=== PATIENT | female | born 1990 | race Hispanic/Latino ===

== ENCOUNTER 2023-08-28 22:08 | Emergency (ER) | payer OTHER, SELFPAY ==
--- OUTSIDE RECORDS SUMMARY | 2023-08-28 22:13 | XMS REPORT | Continuity of Care Document ---
Author Name Unknown Address [address] [facility] [place] [address] [facility] Address [address] 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 Main Attending Clinician Dank Salguero MD Attending Clinician [phone] DANK RAMÍREZ Attending Clinician KELSEA Limon Attending Clinician Unavailable Josue Mart PA-C Attending Clinician [phone] Unknown, Attending Attending Clinician JOSUE Larson Attending Clinician Unavailable Doctor Unassigned, [place] Attending Clinician U patricia Gant MD, Paz Attending Clinician [phone] Dank Ozuna MD Attending Clinician [phone] DANK OZUNA Attending Clinician Unavail Kelsea Baltazar PA-C Attending Clinician [phone] Honorio Hernandez MD Attending Clinician Flor Hayden MD Attending Clinician FLOR HAYDEN Attending Clinician Unavailable 2, [facility] Attending Clinician Unavailable Ashley Johansen MA Attending Clinician Unavailluz Moulton RN, Lilian Jaramillo Attending Clinician HONORIO Thompson Admitting Clinician Unavailable Payers Payer Name Policy Type Policy Number Effective Date Expirati on Date Source [employer] MEDICA[employer] [id number] 2019 00:00:00 [facility] [place] [facility] [id number] 2023 00:00:00 Problems Condition Name Condition Details Condition Category Status Onset Date Resolution Date Last Treatment Date Treating Clinician Comments Source ASCUS with positive high risk HPV cervical ASCUS with positive high risk HPV cervical Disease Active 11-18 00:00: 00 [facility] Encounter for screening for maternal depression Encounter for screening for maternal depression Disease Active 05-10 00:00: 00 [facility] Obesity (BMI 30-39.9) Obesity (BMI 30-39.9) Disease Active 2016-05 00:00: 00 [facility] History of asthma History of asthma Disease Active 09-13 00:00: 00 [facility] Allergies, Adverse Reactions, Alerts Allergy Name Allergy Type Status Severity Reaction(s) Onset Date Inactive Date Treating Clinician Comments Source NO KNOWN ALLERGIE S Drug Class Active [facility] Social History Social Habit Start Date Stop Date Quantity Comments [facility] Exposure to SARS-CoV-2 (event) 2022-09-05 00:00:00 2022-09-15 09:49:00 Not sure [facility] History of Social function 2022-09-15 00:00:00 2022-09-15 00:00:00 [facility] Alcohol intake 2019-12-08 00:00:00 2019-12-08 00:00:00 0 /d [facility] Tobacco use and exposure 2013-10-11 00:00:00 2013-10-11 00:00:00 Smokeless tobacco non-user [facility] History of tobacco use 2013-05-04 00:00:00 Cigarette Smoker [facility] Sex Assigned At 1990 00:00:00 1990 00:00:00 [facility] Smoking Status Start Date Stop Date Source Ex-smoker 2013-10-11 00:00:00 2013-10-11 00:00:00 [facility] Medications Ordered Medication Name Filled Medication Name Start Date Stop Date Current Medication? Ordering Clinician Indication Dosage Frequency Signature (SIG) Comments Components Source triamcinolo ne acetonide 0.1 % cream 09-30 00:00: 00 Yes [id number] Apply to area(s) 2 (two) times daily. [facility] tretinoin 0.025 % cream 09-15 00:00: 00 Yes [id number] Apply to area(s) at bedtime. [facility] clindamycin 1 % gel 09-15 00:00: 00 Yes [id number] Apply to area(s) every morning. [facility] doxycycline monohydrate 100 mg capsule 09-15 00:00: 00 Yes [id number] 100mg Take 1 capsule by mouth in the morning and 1 capsule in the evening. [facility] benzoyl peroxide 10 % external wash 09-15 00:00: 00 Yes [id number] Apply to area(s) 2 (two) times daily. [facility] LOESTRIN FE (LOESTRIN FE 1/20) 1 mg-20 mcg (21)/75 mg (7) tablet 02 00:00: 00 Yes [id number] 1{tbl} Take 1 tablet by mouth in the morning. [facility] terbinafine HCL 250 mg tablet 4-16 00:00: 00 09-01 04:59 :00 No [id number] 250mg Take 1 tablet by mouth in the morning for 14 days. [facility] spironolact one 50 mg tablet 2-15 00:00: 00 Yes [id number] 50mg Take 1 tablet by mouth in the morning and 1 tablet in the evening. [facility] tretinoin 0.025 % cream 06-18 00:00: 00 09-15 00:00 :00 No [id number] Apply to affected area(s) at bedtime. [facility] clindamycin 1 % gel 06-18 00:00: 00 09-15 00:00 :00 No [id number] Apply to affected area(s) every morning. [facility] No known medications 05-29 15:53: 50 No No known medication s [facility] No known medications 2021-05 13:56: 37 No No known medication s [facility] Nitrofurant oin&Nit. Macrocryst 100 mg capsule 2021-05 00:00: 00 03-16 05:59 :00 No [id number] 100mg Take 1 capsule by mouth in the morning and 1 capsule in the evening. Do all this for 5 days. [facility] phenazopyri dine 100 mg tablet 2021-05 00:00: 00 03-13 05:59 :00 No [id number] 200mg Take 2 tablets by mouth in the morning and 2 tablets at noon and 2 tablets in the evening. Do all this for 2 days. [facility] No known medications 11-18 17:27: 58 No No known medication s [facility] Diphenhydra mine-Acetam inophen (TYLENOL PM EXTRA STRENGTH) 25-500 mg Tab 2019-05 10:40: 11 03-23 00:00 :00 No 2{tbl} Take 2 tablets by mouth. Indication s: takes for tooth pain [facility] Nitrofurant oin&Nit. Macrocryst (MACROBID) 100 mg capsule 9 00:00: 00 03-23 00:00 :00 No [id number] 100mg Take 1 capsule by mouth 2 (two) times daily. [facility] metroNIDAZO LE 500 mg tablet 8-04 00:00: 00 01-22 00:00 :00 No [id number] 500mg Take 1 tablet by mouth every 12 (twelve) hours. [facility] ferrous sulfate 325 mg (65 mg iron) tablet 28 00:00: 00 03-23 00:00 :00 No [id number] 325mg Take 1 tablet by mouth 2 (two) times daily. [facility] PNV 67-iron ps-folate no.1-dha (VITAFOL ULTRA) 29 mg iron- 1 mg-200 mg Cap 16 00:00: 00 03-23 00:00 :00 No 1{each} Take 1 Each by mouth daily. [facility] Immunizations Ordered Immunization Name Filled Immunization Name Date Status Comments Source TDAP 2017-02-11 00:00:00 Completed [facility] TDAP 2017-02-11 00:00:00 Completed [facility] TDAP 2017-02-11 00:00:00 Completed [facility] TDAP 2017-02-11 00:00:00 Completed [facility] TDAP 2017-02-11 00:00:00 Completed [facility] TDAP 2017-02-11 00:00:00 Completed [facility] TDAP 2017-02-11 00:00:00 Completed [facility] TDAP 2017-02-11 00:00:00 Completed [facility] TDAP 2017-02-11 00:00:00 Completed [facility] TDAP 2017-02-11 00:00:00 Completed [facility] TDAP 2017-02-11 00:00:00 Completed [facility] TDAP 2017-02-11 00:00:00 Completed [facility] TDAP 2017-02-11 00:00:00 Completed [facility] TDAP 2017-02-11 00:00:00 Completed [facility] TDAP 2017-02-11 00:00:00 Completed [facility] TDAP 2017-02-11 00:00:00 Completed [facility] TDAP 2017-02-11 00:00:00 Completed [facility] TDAP 2017-02-11 00:00:00 Completed [facility] TDAP 2017-02-11 00:00:00 Completed [facility] TDAP 2017-02-11 00:00:00 Completed [facility] TDAP 2017-02-11 00:00:00 Completed [facility] TDAP 2017-02-11 00:00:00 Completed [facility] TDAP 2017-02-11 00:00:00 Completed [facility] TDAP 2017-02-11 00:00:00 Completed [facility] TDAP 2017-02-11 00:00:00 Completed [facility] TDAP 2017-02-11 00:00:00 Completed [facility] TDAP 2017-02-11 00:00:00 Completed [facility] TDAP 2017-02-11 00:00:00 Completed [facility] TDAP 2017-02-11 00:00:00 Completed [facility] TDAP 2017-02-11 00:00:00 Completed [facility] HPV 2015-11-02 00:00:00 Completed [facility] HPV 2015-11-02 00:00:00 Completed [facility] HPV 2015-11-02 00:00:00 Completed [facility] HPV 2015-11-02 00:00:00 Completed [facility] HPV 2015-11-02 00:00:00 Completed [facility] HPV 2015-11-02 00:00:00 Completed [facility] HPV 2015-11-02 00:00:00 Completed [facility] HPV 2015-11-02 00:00:00 Completed [facility] HPV 2015-11-02 00:00:00 Completed [facility] HPV 2015-11-02 00:00:00 Completed [facility] HPV 2015-11-02 00:00:00 Completed [facility] HPV 2015-11-02 00:00:00 Completed [facility] HPV 2015-11-02 00:00:00 Completed [facility] HPV 2015-11-02 00:00:00 Completed [facility] HPV 2015-11-02 00:00:00 Completed [facility] HPV 2015-11-02 00:00:00 Completed [facility] HPV 2015-11-02 00:00:00 Completed [facility] HPV 2015-11-02 00:00:00 Completed [facility] HPV 2015-11-02 00:00:00 Completed [facility] HPV 2015-11-02 00:00:00 Completed [facility] HPV 2015-11-02 00:00:00 Completed [facility] HPV 2015-11-02 00:00:00 Completed [facility] HPV 2015-11-02 00:00:00 Completed [facility] HPV 2015-11-02 00:00:00 Completed [facility] HPV 2015-11-02 00:00:00 Completed [facility] HPV 2015-11-02 00:00:00 Completed [facility] HPV 2015-11-02 00:00:00 Completed [facility] HPV 2015-11-02 00:00:00 Completed [facility] HPV 2015-11-02 00:00:00 Completed [facility] HPV 2015-11-02 00:00:00 Completed [facility] HPV 2015-06-12 00:00:00 Completed [facility] HPV 2015-06-12 00:00:00 Completed [facility] HPV 2015-06-12 00:00:00 Completed [facility] HPV 2015-06-12 00:00:00 Completed [facility] HPV 2015-06-12 00:00:00 Completed [facility] HPV 2015-06-12 00:00:00 Completed [facility] HPV 2015-06-12 00:00:00 Completed [facility] HPV 2015-06-12 00:00:00 Completed [facility] HPV 2015-06-12 00:00:00 Completed [facility] HPV 2015-06-12 00:00:00 Completed [facility] HPV 2015-06-12 00:00:00 Completed [facility] HPV 2015-06-12 00:00:00 Completed [facility] HPV 2015-06-12 00:00:00 Completed [facility] HPV 2015-06-12 00:00:00 Completed [facility] HPV 2015-06-12 00:00:00 Completed [facility] HPV 2015-06-12 00:00:00 Completed [facility] HPV 2015-06-12 00:00:00 Completed [facility] HPV 2015-06-12 00:00:00 Completed [facility] HPV 2015-06-12 00:00:00 Completed [facility] HPV 2015-06-12 00:00:00 Completed [facility] HPV 2015-06-12 00:00:00 Completed [facility] HPV 2015-06-12 00:00:00 Completed [facility] HPV 2015-06-12 00:00:00 Completed [facility] HPV 2015-06-12 00:00:00 Completed [facility] HPV 2015-06-12 00:00:00 Completed [facility] HPV 2015-06-12 00:00:00 Completed [facility] HPV 2015-06-12 00:00:00 Completed [facility] HPV 2015-06-12 00:00:00 Completed [facility] HPV 2015-06-12 00:00:00 Completed [facility] HPV 2015-06-12 00:00:00 Completed [facility] HPV 2015-04-04 00:00:00 Completed [facility] HPV 2015-04-04 00:00:00 Completed [facility] HPV 2015-04-04 00:00:00 Completed [facility] HPV 2015-04-04 00:00:00 Completed [facility] HPV 2015-04-04 00:00:00 Completed [facility] HPV 2015-04-04 00:00:00 Completed [facility] HPV 2015-04-04 00:00:00 Completed [facility] HPV 2015-04-04 00:00:00 Completed [facility] HPV 2015-04-04 00:00:00 Completed [facility] HPV 2015-04-04 00:00:00 Completed [facility] HPV 2015-04-04 00:00:00 Completed [facility] HPV 2015-04-04 00:00:00 Completed [facility] HPV 2015-04-04 00:00:00 Completed [facility] HPV 2015-04-04 00:00:00 Completed [facility] HPV 2015-04-04 00:00:00 Completed [facility] HPV 2015-04-04 00:00:00 Completed [facility] HPV 2015-04-04 00:00:00 Completed [facility] HPV 2015-04-04 00:00:00 Completed [facility] HPV 2015-04-04 00:00:00 Completed [facility] HPV 2015-04-04 00:00:00 Completed [facility] HPV 2015-04-04 00:00:00 Completed [facility] HPV 2015-04-04 00:00:00 Completed [facility] HPV 2015-04-04 00:00:00 Completed [facility] HPV 2015-04-04 00:00:00 Completed [facility] HPV 2015-04-04 00:00:00 Completed [facility] HPV 2015-04-04 00:00:00 Completed [facility] HPV 2015-04-04 00:00:00 Completed [facility] HPV 2015-04-04 00:00:00 Completed [facility] HPV 2015-04-04 00:00:00 Completed [facility] HPV 2015-04-04 00:00:00 Completed [facility] Rubella 2011-10-06 00:00:00 Completed [facility] TDAP 2011-10-06 00:00:00 Completed [facility] Rubella 2011-10-06 00:00:00 Completed [facility] TDAP 2011-10-06 00:00:00 Completed [facility] Rubella 2011-10-06 00:00:00 Completed [facility] TDAP 2011-10-06 00:00:00 Completed [facility] Rubella 2011-10-06 00:00:00 Completed [facility] TDAP 2011-10-06 00:00:00 Completed [facility] Rubella 2011-10-06 00:00:00 Completed [facility] TDAP 2011-10-06 00:00:00 Completed [facility] Rubella 2011-10-06 00:00:00 Completed [facility] TDAP 2011-10-06 00:00:00 Completed [facility] Rubella 2011-10-06 00:00:00 Completed [facility] TDAP 2011-10-06 00:00:00 Completed [facility] Rubella 2011-10-06 00:00:00 Completed [facility] TDAP 2011-10-06 00:00:00 Completed [facility] Rubella 2011-10-06 00:00:00 Completed [facility] TDAP 2011-10-06 00:00:00 Completed [facility] Rubella 2011-10-06 00:00:00 Completed [facility] TDAP 2011-10-06 00:00:00 Completed [facility] Rubella 2011-10-06 00:00:00 Completed [facility] TDAP 2011-10-06 00:00:00 Completed [facility] Rubella 2011-10-06 00:00:00 Completed [facility] TDAP 2011-10-06 00:00:00 Completed [facility] Rubella 2011-10-06 00:00:00 Completed [facility] TDAP 2011-10-06 00:00:00 Completed [facility] Rubella 2011-10-06 00:00:00 Completed [facility] TDAP 2011-10-06 00:00:00 Completed [facility] Rubella 2011-10-06 00:00:00 Completed [facility] TDAP 2011-10-06 00:00:00 Completed [facility] Rubella 2011-10-06 00:00:00 Completed [facility] TDAP 2011-10-06 00:00:00 Completed [facility] Rubella 2011-10-06 00:00:00 Completed [facility] TDAP 2011-10-06 00:00:00 Completed [facility] Rubella 2011-10-06 00:00:00 Completed [facility] TDAP 2011-10-06 00:00:00 Completed [facility] Rubella 2011-10-06 00:00:00 Completed [facility] TDAP 2011-10-06 00:00:00 Completed [facility] Rubella 2011-10-06 00:00:00 Completed [facility] TDAP 2011-10-06 00:00:00 Completed [facility] Rubella 2011-10-06 00:00:00 Completed [facility] TDAP 2011-10-06 00:00:00 Completed [facility] Rubella 2011-10-06 00:00:00 Completed [facility] TDAP 2011-10-06 00:00:00 Completed [facility] Rubella 2011-10-06 00:00:00 Completed [facility] TDAP 2011-10-06 00:00:00 Completed [facility] Rubella 2011-10-06 00:00:00 Completed [facility] TDAP 2011-10-06 00:00:00 Completed [facility] Rubella 2011-10-06 00:00:00 Completed [facility] TDAP 2011-10-06 00:00:00 Completed [facility] Rubella 2011-10-06 00:00:00 Completed [facility] TDAP 2011-10-06 00:00:00 Completed [facility] Rubella 2011-10-06 00:00:00 Completed [facility] TDAP 2011-10-06 00:00:00 Completed [facility] Rubella 2011-10-06 00:00:00 Completed [facility] TDAP 2011-10-06 00:00:00 Completed [facility] Rubella 2011-10-06 00:00:00 Completed [facility] TDAP 2011-10-06 00:00:00 Completed [facility] Rubella 2011-10-06 00:00:00 Completed [facility] TDAP 2011-10-06 00:00:00 Completed [facility] Influenza Virus Vaccine 2008-03-18 00:00:00 Completed [facility] Influenza Virus Vaccine 2008-03-18 00:00:00 Completed [facility] Influenza Virus Vaccine 2008-03-18 00:00:00 Completed [facility] Influenza Virus Vaccine 2008-03-18 00:00:00 Completed [facility] Influenza Virus Vaccine 2008-03-18 00:00:00 Completed [facility] Influenza Virus Vaccine 2008-03-18 00:00:00 Completed [facility] Influenza Virus Vaccine 2008-03-18 00:00:00 Completed [facility] Influenza Virus Vaccine 2008-03-18 00:00:00 Completed [facility] Influenza Virus Vaccine 2008-03-18 00:00:00 Completed [facility] Influenza Virus Vaccine 2008-03-18 00:00:00 Completed [facility] Influenza Virus Vaccine 2008-03-18 00:00:00 Completed [facility] Influenza Virus Vaccine 2008-03-18 00:00:00 Completed [facility] Influenza Virus Vaccine 2008-03-18 00:00:00 Completed [facility] Influenza Virus Vaccine 2008-03-18 00:00:00 Completed [facility] Influenza Virus Vaccine 2008-03-18 00:00:00 Completed [facility] Influenza Virus Vaccine 2008-03-18 00:00:00 Completed [facility] Influenza Virus Vaccine 2008-03-18 00:00:00 Completed [facility] Influenza Virus Vaccine 2008-03-18 00:00:00 Completed [facility] Influenza Virus Vaccine 2008-03-18 00:00:00 Completed [facility] Influenza Virus Vaccine 2008-03-18 00:00:00 Completed [facility] Influenza Virus Vaccine 2008-03-18 00:00:00 Completed [facility] Influenza Virus Vaccine 2008-03-18 00:00:00 Completed [facility] Influenza Virus Vaccine 2008-03-18 00:00:00 Completed [facility] Influenza Virus Vaccine 2008-03-18 00:00:00 Completed [facility] Influenza Virus Vaccine 2008-03-18 00:00:00 Completed [facility] Influenza Virus Vaccine 2008-03-18 00:00:00 Completed [facility] Influenza Virus Vaccine 2008-03-18 00:00:00 Completed [facility] Influenza Virus Vaccine 2008-03-18 00:00:00 Completed [facility] Influenza Virus Vaccine 2008-03-18 00:00:00 Completed [facility] Influenza Virus Vaccine 2008-03-18 00:00:00 Completed [facility] Influenza Virus Vaccine Unknown Completed [facility] Rubella Unknown Completed [facility] TDAP Unknown Completed [facility] HPV Unknown Completed [facility] HPV Unknown Completed [facility] HPV Unknown Completed [facility] TDAP Unknown Completed [facility] Influenza Virus Vaccine Unknown Completed [facility] Rubella Unknown Completed [facility] TDAP Unknown Completed [facility] HPV Unknown Completed [facility] HPV Unknown Completed [facility] HPV Unknown Completed [facility] TDAP Unknown Completed [facility] Influenza Virus Vaccine Unknown Completed [facility] Rubella Unknown Completed [facility] TDAP Unknown Completed [facility] HPV Unknown Completed [facility] HPV Unknown Completed [facility] HPV Unknown Completed [facility] TDAP Unknown Completed [facility] Influenza Virus Vaccine Unknown Completed [facility] Rubella Unknown Completed [facility] TDAP Unknown Completed [facility] HPV Unknown Completed [facility] HPV Unknown Completed [facility] HPV Unknown Completed [facility] TDAP Unknown Completed [facility] Influenza Virus Vaccine Unknown Completed [facility] Rubella Unknown Completed [facility] TDAP Unknown Completed [facility] HPV Unknown Completed [facility] HPV Unknown Completed [facility] HPV Unknown [facility]pleted [facility] TDAP Unknown Completed [facility] [facility] Influenza Virus Vaccine Unknown Completed [facility] Rubella Unknown Completed [facility] TDAP Unknown Completed [facility] HPV Unknown Completed [facility] HPV Unknown Completed [facility] HPV Unknown Completed [facility] TDAP Unknown Completed [facility] Influenza Virus Vaccine Unknown Completed [facility] Rubella Unknown Completed [facility] TDAP Unknown Completed [facility] HPV Unknown Completed [facility] HPV Unknown Completed [facility] HPV Unknown Completed [facility] TDAP Unknown Completed [facility] Vital Signs Vital Name Observation Time Observation Value Comments S ource Systolic blood pressure 2022-09-02 21:38:00 111 mm[Hg] [facility] Diastolic blood pressure 2022-09-02 21:38:00 73 mm[Hg] [facility] Heart rate 2022-09-02 21:38:00 68 [facility] 2022-09-02 21:38:00 36.56 Lorena [facility] Respiratory rate 2022-09-02 21:38:00 18 /min [facility] Body height 2022-09-02 21:38:00 149.9 cm [facility] weight 2022-09-02 21:38:00 62.596 kg Univ [facility] BMI 2022-09-02 21:38:00 27.87 kg/m2 [facility] Systolic blood pressure 2022-08-18 00:17:00 110 mm[Hg] [facility] Diastolic blood pressure 2022-08-18 00:17:00 59 mm[Hg] [facility] Heart rate 2022-08-18 00:17:00 78 /min Unive [facility] Body temperature 2022-08-18 00:17:00 36.78 Lorena [facility] Respiratory rate 2022-08-18 00:17:00 16 /min [facility] Body weight 2022-08-18 00:17:00 61.236 kg [facility] BMI 2022-08-18 00:17:00 27.27 kg/m2 [facility] Oxygen saturation in Arterial blood by Pulse oximetry 2022-08-18 00:17:00 98 /min [facility] Systolic blood pressure 2022-05-29 21:16:00 128 mm[Hg] [facility] Diastolic blood pressure 2022-05-29 21:16:00 79 mm[Hg] [facility] Heart rate 2022-05-29 21:16:00 76 /min Unive [facility] Body temperature 2022-05-29 21:16:00 36.72 Lorena [facility] Body height 2022-05-29 21:16:00 149.9 cm [facility] Body weight 2022-05-29 21:16:00 59.966 kg [facility] BMI 2022-05-29 21:16:00 26.70 kg/m2 [facility] Systolic blood pressure 2022-03-10 19:44:00 115 mm[Hg] [facility] Diastolic blood pressure 2022-03-10 19:44:00 81 mm[Hg] [facility] Heart rate 2022-03-10 19:44:00 76 /min Unive [facility] Body temperature 2022-03-10 19:44:00 36.72 Lorena [facility] Respiratory rate 2022-03-10 19:44:00 16 /min [facility] Body weight 2022-03-10 19:44:00 58.196 kg [facility] BMI 2022-03-10 19:44:00 25.91 kg/m2 [facility] Oxygen saturation in Arterial blood by Pulse oximetry 2022-03-10 19:44:00 99 /min [facility] Systolic blood pressure 2021-11-18 19:11:00 108 mm[Hg] [facility] Diastolic blood pressure 2021-11-18 19:11:00 72 mm[Hg] [facility] Heart rate 2021-11-18 19:11:00 77 /min [facility] Body temperature 2021-11-18 19:11:00 36.94 Lorena [facility] Body height 2021-11-18 19:11:00 149.9 cm [facility] Body weight 2021-11-18 19:11:00 55.702 kg [facility] BMI 2021-11-18 19:11:00 24.80 kg/m2 [facility] Procedures Procedure Date / Time Performed Performing Clinician Source [facility] PATIENT FINANCIAL POLICY 2022-08-18 00:12:13 Doctor Unassigned, [place] [facility] INSURANCE CORRESPONDENCE 2022-06-28 06:01:00 Doc tor Unassigned, [place] [facility] POCT URINALYSIS 2022-03-10 19:51:00 Flor Hayden [facility] ASSIGNMENT OF BENEFITS 2022-03-10 19:15:08 Docto r Unassigned, [place] [facility] DISCLOSURE AND CONSENT, MEDICAL AND SURGICAL PROCEDURES 2021-11-06 05:01:00 Doctor Unassigned, [place] [facility] Encounters Start Date/Time End Date/Time Encounter Type Admission Type Attending Clinicians Care Facility Care Department Encounter ID Source 2021-03-02 16:05:39 Outpatient R HONORIO HERNANDEZ [facility] GEORGE [id number] [facility] 2021-03-02 06:08:38 Outpatient P [facility] MIRI [id number] [facility] 2023-09-22 11:30:00 2023-09-22 11:30:00 Outpatient R EVELYNE LAINEZIO-ERLINDA S, EVELYNE [facility] [id number] [facility] 2023-04-03 09:51:03 2023-04-03 09:51:03 Outpatient [facility] [id number] Micah Reardon 2022-12-18 11:30:00 2022-12-18 11:30:00 Outpatient ADRIANNE MARTINEZ [facility] [id number] [facility] 2022-09-30 00:00:00 2022-09-30 00:00:00 Patient Secure Msg Yang Guthrie [facility] 1.2.840.114 350.1.13.10 4.2.7.2.686 [id number] [facility] 2022-09-25 00:00:00 2022-09-25 00:00:00 Patient Secure Msg Yang Guthrie [facility] 1.2.840.114 350.1.13.10 4.2.7.2.686 [id number] [facility] 2022-09-17 00:00:00 2022-09-17 00:00:00 Telephone Yang Guthrie [facility] 1.2.840.114 350.1.13.10 4.2.7.2.686 [id number] [facility] 2022-09-15 10:15:00 2022-09-15 11:24:56 Outpatient LINDA LÓPEZ [facility] [id number] [facility] 2022-09-15 10:15:00 2022-09-15 11:24:56 Office Visit Yang Guthrie [facility] 1.2.840.114 350.1.13.10 4.2.7.2.686 [id number] [facility] 2022-09-15 00:00:00 2022-09-15 00:00:00 Telephone Yang Guthrie [facility] 1..114 350.1.13.10 4.2.7.2.686 [id number] [facility] 2022-09-02 17:15:00 2022-09-02 17:30:00 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, 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 Main Dank Ramírez [facility] 1..114 350.1.13.10 4.2.7.2.686 [id number] [facility] 2022-09-02 17:15:00 2022-09-02 17:15:00 Outpatient DANK LOPEZ [facility] [id number] [facility] 2022-09-02 16:00:00 2022-09-02 17:00:01 Office Visit Evelyne Lainez [facility] 1..114 350.1.13.10 4.2.7.2.686 [id number] [facility] 2022-08-17 19:00:00 2022-08-17 19:20:00 Urgent Care Josue Mart Unknown, Attending [facility] 1.84.114 350.1.13.10 4.2.7.2.686 [id number] [facility] 2022-08-17 19:00:00 2022-08-17 19:00:00 Outpatient JOSUE STEPHENS [facility] [id number] [facility] 2022-08-17 00:00:00 2022-08-17 00:00:00 Orders Only Doctor Unassigned, [place] [facility] 1..114 350.1.13.10 4.2.7.2.686 [id number] [facility] 2022-07-04 00:00:00 2022-07-04 00:00:00 Telephone Paz Gant [facility]PEC IALTY [facility] 1..114 350.1.13.10 4.2.7.2.686 [id number] [facility] 2022-06-28 00:00:00 2022-06-28 00:00:00 Orders Only Doctor Unassigned, [place] [facility] 1..114 350.1.13.10 4.2.7.2.686 [id number] [facility] 2022-06-24 00:00:00 2022-06-24 00:00:00 Telephone Paz Gant [facility] 1..114 350.1.13.10 4.2.7.2.686 [id number] [facility] 2022-06-18 10:45:00 2022-06-18 11:00:00 Office Visit Paz Gant Michael G [facility] 1..114 350.1.13.10 4.2.7.2.686 [id number] [facility] 2022-06-18 10:45:00 2022-06-18 10:45:00 Outpatient DANK WESLEY [facility] [id number] [facility] 2022-06-09 00:00:00 2022-06-09 00:00:00 Patient Secure Kelsea Cason [facility] FORTINO JACOBO [facility] 1..114 350.1.13.10 4.2.7.2.686 [id number] 134 [id number] [facility] 2022-06-09 00:00:00 2022-06-09 00:00:00 Patient Secure Msg [facility] 1..840.114 350.1.13.10 4.2.7.2.686 [id number] [facility] 2022-05-29 15:00:00 2022-05-29 15:55:43 Outpatient R MARY HONORIO [facility] [id number] [facility] 2022-05-29 15:00:00 2022-05-29 15:55:43 Office Visit [facility] 1..840.114 350.1.13.10 4.2.7.2.686 [id number] 134 [id number] [facility] 2022-03-10 13:00:00 2022-03-10 13:20:00 Urgent Care Flor Hayden, Attending [facility] 1..840.114 350.1.13.10 4.2.7.2.686 [id number] [facility] 2022-03-10 13:00:00 2022-03-10 13:00:00 Outpatient R FLOR HAYDEN [facility] [id number] [facility] 2022-03-10 00:00:00 2022-03-10 00:00:00 Orders Only Doctor Unassigned, [place] [facility] 1.840.114 350.1.13.10 4.2.7.2.686 [id number] [facility] 2022-03-10 00:00:00 2022-03-10 00:00:00 Letter (Out) Flor Hayden [facility] JOHANN?[facility] 1..840.114 350.1.13.10 4.2.7.2.686 [id number] [facility] 2021-11-18 13:30:00 2021-11-18 14:40:17 [facility] [id number] [facility] 2021-11-18 13:30:00 2021-11-18 14:40:17 Office Visit Honorio Hernandez [facility] PROFESSIO NAL BUILDING 1.2.840.114 350.1.13.10 4.2.7.2.686 [id number] [facility] 2021-11-18 13:30:00 2021-11-18 14:40:17 Outpatient R HONORIO HERNANDEZ [facility] [id number] [facility] 2021-11-18 13:30:00 2021-11-18 13:30:00 Outpatient R HONORIO HERNANDEZ [facility] [id number] [facility] 2021-11-06 13:00:00 2021-11-06 13:42:53 Outpatient R [facility] [id number] [facility] 2021-11-06 13:00:00 2021-11-06 13:42:53 [facility] 1.2.840.114 350.1.13.10 4.2.7.2.686 [id number] [facility] 2021-11-06 13:00:00 2021-11-06 13:42:53 Outpatient R [facility] [id number] [facility] 2021-11-06 00:00:00 2021-11-06 00:00:00 Orders Only Doctor Unassigned, [place] [facility] 1.2.840.114 350.1.13.10 4.2.7.2.686 [id number] [facility] 2021-10-09 13:00:00 2021-10-09 13:00:00 Outpatient R HONORIO HERNANDEZ [facility] [id number] [facility] 2021-09-16 00:00:00 2021-09-16 00:00:00 Telephone Vanaphan, [facility] 1.2.840.114 350.1.13.10 4.2.7.2.686 [id number] 134 [id number] [facility] 2021-08-29 14:30:00 2021-08-29 14:45:00 [employer]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 2, [facility] 1.2.840.114 350.1.13.10 4.2.7.2.686 [id number] [facility] 2021-08-29 14:30:00 2021-08-29 14:30:00 [facility] [id number] 2021-08-29 14:00:00 2021-08-29 14:07:50 [facility] 1.2.840.114 350.1.13.10 4.2.7.2.686 [id number] [facility] 2021-08-29 14:00:00 2021-08-29 14:07:50 [facility] [id number] [facility] 2021-07-02 00:00:00 2021-07-02 00:00:00 Case Management Ashley Johansen 1..840.114 350.1.13.10 4.2.7.2.686 [id number] [facility] 2021-02-18 09:30:00 2021-02-18 09:30:00 Outpatient HONORIO JAMA [facility] [id number] [facility] 2021-01-16 00:00:00 2021-01-16 00:00:00 Telephone Lilian Moulton 1..840.114 350.1.13.10 4.2.7.2.686 [id number] [facility] 2021-01-10 11:34:00 2021-01-10 11:49:00 [employer]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1.13.10 4.2.7.2.686 [id number] [facility] 2020-09-24 10:00:00 2020-09-24 10:00:00 Outpatient R [facility] [id number] [facility] 2020-08-16 09:30:00 2020-08-16 09:30:00 Outpatient HONORIO JAMA [facility] [id number] [facility] 2020-08-14 00:00:00 2020-08-14 00:00:00 Patient Secure Msg Doctor Unassigned, [place] [facility] 1.2.840.114 350.1.13.10 4.2.7.2.686 [id number] [facility] 2020-07-23 10:30:00 2020-07-23 10:30:00 [facility] [id number] [facility] 2020-07-17 10:30:00 2020-07-17 10:30:00 Outpatient HONORIO JAMA [facility] [id number] [facility] 2020-06-25 15:15:00 2020-06-25 15:15:00 Outpatient HONORIO JAMA [facility] [id number] [facility] 2020-05-25 00:00:00 2020-05-25 00:00:00 Patient Secure g Honorio Hernandez [facility] 1..840.114 350.1.13.10 4.2.7.2.686 [id number] [facility] 2020-05-14 10:15:00 2020-05-14 10:15:00 Outpatient HONORIO JAMA [facility] [id number] [facility] 2020-05-10 15:00:00 2020-05-10 15:00:00 Outpatient HONORIO JAMA [facility] [id number] [facility] 2020-04-24 10:30:00 2020-04-24 10:30:00 Outpatient Carole HARRIS KELSEA [facility] [id number] [facility] 2020-03-21 09:30:00 2020-03-21 09:30:00 Outpatient HONORIO JAMA [facility] [id number] [facility] 2020-03-20 16:15:00 2020-03-20 16:15:00 Outpatient Carole HARRIS KELSEA [facility] [id number] [facility] 2020-03-16 00:00:00 2020-03-16 00:00:00 Patient Secure Msg Doctor Unassigned, [place] [facility] 1..840.114 350.1.13.10 4.2.7.2.686 [id number] [facility] 2020-03-13 16:15:00 2020-03-13 16:15:00 Outpatient R HONORIO HERNANDEZ [facility] [id number] [facility] 2020-03-06 10:30:00 2020-03-06 10:30:00 Outpatient R KELSEA HARRIS [facility] [id number] [facility] 2020-02-20 16:15:00 2020-02-20 16:15:00 Outpatient R HONORIO HERNANDEZ [facility] [id number] [facility] 2020-02-06 16:15:00 2020-02-06 16:15:00 Outpatient R KELSEA HARRIS [facility] [id number] [facility] 2020-02-03 14:30:00 2020-02-03 14:30:00 Outpatient R [facility] [id number] [facility] 2020-02-01 10:00:00 2020-02-01 10:00:00 Outpatient R [facility] [id number] [facility] 2020-01-27 10:00:00 2020-01-27 10:00:00 Outpatient R [facility] [id number] [facility] 2020-01-23 10:15:00 2020-01-23 10:15:00 Outpatient R HONORIO HERNANDEZ [facility] [id number] [facility] 2020-01-20 00:00:00 2020-01-20 00:00:00 Patient Secure Msg Honorio Hernandez [facility] 1.2.840.114 350.1.13.10 4.2.7.2.686 [id number] [facility] 2020-01-06 11:00:00 2020-01-06 11:00:00 Outpatient R KELSEA HARRIS [facility] [id number] [facility] 2020-01-06 00:00:00 2020-01-06 00:00:00 Patient Secure Msg Honorio Hernandez [facility] 1.2.840.114 350.1.13.10 4.2.7.2.686 [id number] [facility] 2019-12-05 14:00:00 2019-12-05 14:00:00 Outpatient HONORIO JAMA [facility] [id number] [facility] Results Test Description Test Time Test Comments Results Result Co mments Source [facility] W SPECIFIC [id number] 19:53:00* Test Item Value Reference Range Interpretation Comme nts POCT U SP GRAV (test code = 3255) 1.015 mg/dl 1.005-1.025 POCT PH U (test code = 3254) 5 mg/dl 5-8 POCT U LEUK EST (test code = 3263) ++ Negative - Negative POCT U NIT (test code = 3262) neg Negative - Negative POCT U PROT (test code = 3259) trace Negative - Negative POCT U GLU (test code = 3256) normal Negative - Negative POCT U KETONE (test code = 3258) neg Negative - Negative POCT U UROBILI (test code = 3260) normal 0.2-1 POCT U BILI (test code = 3261) neg Negative - Negative POCT U BLD (test code = 3257) trace Negative - Negative POCT U COLOR (test code = 3266) dark yellow POCT U APPEAR (test code = 3267) cloudy ECHO (test code = ECHO) accurate developme nt and interpretation of all internal controls Lab Interpretation (test code = 04896-6) Abnormal [facility]
[2023-08-28] MEDS ORDERED: NA CHLORIDE 0.9% 1,000 ML ONE (22:25)
[2023-08-28 22:42] LABS: Absolute Eosinophils 0.1 K/uL (0-0.5); Absolute Lymphocytes (CBC) 2.8 K/uL (0.7-4.9); Absolute Monocytes 0.8 K/uL (0.1-1.3); Absolute Neutrophil 6.2 K/uL (1.8-8.0); Basophils % 0.5 % (0-1.3); Eosinophils % 1.1 % (0-4.4); Hematocrit 41.4 % (36.0-45.0); Hemoglobin 14.2 g/dL (12.0-15.0); Lymphocytes % 28.3 % (15.3-44.8); MCH 29.2 pg (27.0-35.0); MCHC 34.3 g/dL (32.0-36.0); MPV 8.9 fL (7.6-11.3); Monocytes % 7.6 % (3.3-12.3); Neutrophils % 62.5 % (41.7-73.7); Nucleated Red Blood Cells % 0.1 % (0-0); Platelets 386 thou/uL (152-406); RBC Red Blood Cell Count 4.87 M/uL (3.86-4.86); Red Cell Distribution Width 13.3 % (12.1-15.2)
[2023-08-28 22:59] LABS: Albumin 4.2 g/dL (3.4-5.0); Albumin/Globulin Ratio 1.1 (1.1-1.8); Anion Gap 11.4 mEq/L (5.0-15.0); Bilirubin Total 1.4 mg/dL (0.2-1.0); Globulin 3.8 g/dL (2.3-3.5); Potassium 3.4 mEq/L (3.5-5.1)
[2023-08-28 23:03] LABS: SARS-CoV-2 Antigen CONTROL BLUE LINE VIS/BG OK; SARS-CoV-2 Antigen Rapid Res Negative (Negative)
[2023-08-28] MEDS ORDERED: POTASSIUM 25 MEQ EFFERV TAB ONE (23:18)
--- NOTE | 2023-08-28 23:43 | EDPHYS ---
Physician Documentation [facility] Name: Kamala Castillo Age: 32 yrs Sex: Female : 1990 Arrival Date: 08/28/2023 Time: 22:08 Bed 3 Private MD: ED Physician Paresh Senior HPI: 08/27 22:52 This 32 yrs old Female presents to ER via Ambulatory with complaints of Near shira Syncope. 22:52 The patient has experienced near-syncope, almost passed out, felt dizzy, felt faint. shira Onset: The symptoms/episode began/occurred just prior to arrival, today. Duration: This was a single episode, that lasted 10 second(s). Context: the episode(s) was witnessed, by family, , occurred at home. Associated injury: The patient did not suffer any apparent associated injury. Associated signs and symptoms: Pertinent positives: dizziness, headache, weakness, body aches. Current symptoms: headache, that is mild. The patient has not experienced similar symptoms in the past. Historical: - Allergies: 22:16 No Known Allergies; jb4 - PMHx: 22:16 None; jb4 - PSHx: 22:16 Tonsillectomy; jb4 - Immunization history:: Adult Immunizations up to date. - Infectious Disease History:: Denies. - Social history:: Smoking status: Patient denies any tobacco usage or history of. - Family history:: not pertinent. ROS: 22:52 Constitutional: Negative for fever, chills, and weight loss, Eyes: Negative for injury, shira pain, redness, and discharge, ENT: Negative for injury, pain, and discharge, Neck: Negative for injury, pain, and swelling, Cardiovascular: Negative for chest pain, palpitations, and edema, Respiratory: Negative for shortness of breath, cough, wheezing, and pleuritic chest pain, Abdomen/GI: Negative for abdominal pain, nausea, vomiting, diarrhea, and constipation, Back: Negative for injury and pain, : Negative for injury, bleeding, discharge, and swelling, MS/Extremity: Negative for injury and deformity, Skin: Negative for injury, rash, and discoloration, Psych: Negative for depression, anxiety, suicide ideation, homicidal ideation, and hallucinations, Allergy/Immunology: Negative for hives, rash, and allergies, Endocrine: Negative for neck swelling, polydipsia, polyuria, polyphagia, and marked weight changes, Hematologic/Lymphatic: Negative for swollen nodes, abnormal bleeding, and unusual bruising, 22:52 Neuro: Positive for near syncope, Exam: 22:52 Constitutional: This is a well developed, well nourished patient who is awake, alert, shira and in no acute distress. Head/Face: Normocephalic, atraumatic. Eyes: Pupils equal round and reactive to light, extra-ocular motions intact. Lids and lashes normal. Conjunctiva and sclera are non-icteric and not injected. Cornea within normal limits. Periorbital areas with no swelling, redness, or edema. ENT: Nares patent. No nasal discharge, no septal abnormalities noted. Tympanic membranes are normal and external auditory canals are clear. Oropharynx with no redness, swelling, or masses, exudates, or evidence of obstruction, uvula midline. Mucous membranes moist. Neck: Trachea midline, no thyromegaly or masses palpated, and no cervical lymphadenopathy. Supple, full range of motion without nuchal rigidity, or vertebral point tenderness. No Meningismus. Chest/axilla: Normal chest wall appearance and motion. Nontender with no deformity. No lesions are appreciated. Cardiovascular: Regular rate and rhythm with a normal S1 and S2. No gallops, murmurs, or rubs. Normal PMI, no JVD. No pulse deficits. Respiratory: Lungs have equal breath sounds bilaterally, clear to auscultation and percussion. No rales, rhonchi or wheezes noted. No increased work of breathing, no retractions or nasal flaring. Abdomen/GI: Soft, non-tender, with normal bowel sounds. No distension or tympany. No guarding or rebound. No evidence of tenderness throughout. Back: No spinal tenderness. No costovertebral tenderness. Full range of motion. Skin: Warm, dry with normal turgor. Normal color with no rashes, no lesions, and no evidence of cellulitis. MS/ Extremity: Pulses equal, no cyanosis. Neurovascular intact. Full, normal range of motion. Neuro: Awake and alert, GCS 15, oriented to person, place, time, and situation. Cranial nerves II-XII grossly intact. Motor strength 5/5 in all extremities. Sensory grossly intact. Cerebellar exam normal. Normal gait. 22:52 ECG was reviewed by the Attending Physician. 22:52 Musculoskeletal/extremity: DVT Exam: No signs of deep vein thrombosis. no pain, no swelling, no tenderness, negative Homans' sign noted on exam, no appreciated bluish discoloration, no erythema, no increased warmth, Vital Signs: 22:15 BP 133 / 107; Pulse 71; Resp 18; Temp 97.2(O); Pulse Ox 96% on R/A; Weight 63.5 kg; jb4 Height 4 ft. 11 in. ; 08/28 00:04 BP 124 / 72; Pulse 76; Resp 17; Temp 98; Pulse Ox 99% on R/A; rv 08/27 22:15 Body Mass Index 28.28 (63.50 kg, 149.86 cm) jb4 [place] Coma Score: 00:04 Eye Response: spontaneous(4). Motor Response: obeys commands(6). Verbal Response: rv oriented(5). Total: 15. MDM: 08/27 22:13 Patient medically screened. [facility] 22:56 Differential Diagnosis: cardiac arrhythmia, GI bleed, sepsis, vasovagal episode. Data [facility] reviewed: vital signs, nurses notes, lab test result(s), EKG, radiologic studies, CT scan. Consideration of Admission/Observation Escalation of care including admission/observation considered. I considered the following discharge prescriptions or medication management in the emergency department Medications were administered in the Emergency Department. See MAR. Independent interpretation of the following test(s) in the Emergency Department EKG: See my EKG interpretation above. Test considered but Not performed: MRI: no mri brain. Historians other than the Patient: Spouse/Significant Other: so well informed. Care significantly affected by the following chronic conditions: none. Counseling: I had a detailed discussion with the patient and/or guardian regarding the historical points, exam findings, and any diagnostic results supporting the discharge/admit diagnosis, lab results, radiology results, the need for outpatient follow up, for definitive care, a family practitioner. 08/27 22:23 Order name: CBC with Diff; Complete Time: 22:51 [facility] 08/27 22:23 Order name: Comprehensive Metabolic Panel; Complete Time: 23:07 [facility] 08/27 22:23 Order name: Urinalysis w/ reflexes [facility] 08/27 22:23 Order name: PREGU [facility] 08/27 22:23 Order name: Flu; Complete Time: 23:07 [facility] 08/27 22:23 Order name: SARS RAPID; Complete Time: 23:07 [facility] 08/27 22:23 Order name: Strep [facility] 08/27 23:04 Order name: Throat Culture [facility] 08/27 22:59 Order name: PO challenge; Complete Time: 23:13 [facility] EC:52 Rate is 69 beats/min. Rhythm is regular. QRS [place] is Normal. [place] interval is normal. QRS shira interval is normal. QT interval is normal. No Q waves. T waves are Normal. No ST changes noted. Clinical impression: Normal ECG and No evidence of ischemia. Interpreted by me. Reviewed by me. Administered Medications: 22:29 Drug: NS 0.9% IV 1000 ml IV at 1 bolus Per protocol; 1000 mL bolus Route: IV; Rate: 1 jb4 bolus; Site: right antecubital; :27 Follow up: Response: No adverse reaction; IV Status: Completed infusion; IV Intake: jb4 1000ml 23:27 Drug: Potassium PO Effervescent Tablet 25 mEq PO once; dissolve in 4 ounces of water or jb4 juice Route: PO; 08/28 00:05 Follow up: Response: No adverse reaction rv Disposition Summary: 08/28/23 23:42 Discharge Ordered Notes: Location: Home shira Problem: new shira Symptoms: have improved shira Condition: Stable shira Diagnosis - Syncope Near shira - Viral infection, unspecified shira - Hyperventilation shira - Hypokalemia shira Followup: shira - With: Private Physician - When: 2 - 3 days - Reason: Recheck today's complaints, Continuance of care, Re-evaluation by your physician Discharge Instructions: - Discharge Summary Sheet shira - Potassium Content of Foods shira - Near-Syncope shira - Syncope shira - Weakness shira - Near-Syncope, Qyqr-ho-Akjr shira - Syncope, Iilu-rg-Rrtk shira - Weakness, Vszd-ka-Jpvi shira - Viral Respiratory Infection, [place]-Xy-Czbr shira - Hypokalemia shira - Viral Illness, Adult shira Forms: - Medication Reconciliation Form shira - Antibiotic Education shira - Prescription Opioid Use shira - Patient Portal Instructions shira - Leadership Thank You Letter [facility] Prescriptions: - ondansetron 4 mg Oral Tablet,disintegrating - take 1 tablet ORAL route every 6 to 8 hours for 5 days; 20 tablet; Refills: 0, shira Product Selection Permitted - Ibuprofen 600 mg Oral tablet - take 1 tablet ORAL route every 6 hours As needed take with food; 20 tablet; shira Refills: 0, Product Selection Permitted Signatures: Dispatcher [employer] EDMS Paresh Senior MD MD cha Bryson, James, RN RN jb4 Chaparro Bradley RN rv Corrections: (The following items were deleted from the chart) 08/27 22:24 22:23 CBC+H.LAB.BRZ ordered. EDMS EDMS 22:24 22:23 COMPREHENSIVE METABOLIC PANEL+C.LAB.BRZ ordered. EDMS EDMS 22:24 22:23 Urinalysis+U.LAB.BRZ ordered. EDMS EDMS 22:24 22:23 Test, Urine+UC.LAB.BRZ ordered. EDMS EDMS 22:24 22:23 Influenza Screen (A \T\ B)+BA.LAB.BRZ ordered. EDMS EDMS 22:24 22:23 SARS-COV-2 Antigen Rapid+I.LAB.BRZ ordered. EDMS EDMS 22:24 22:23 Group A Streptococcus Rapid Sc+BA.LAB.BRZ ordered. EDMS EDMS 22:59 22:59 Head Brain Wo Cont+CT.RAD.BRZ ordered. EDMS EDMS
--- NOTE | 2023-08-28 23:43 | ER ---
Nurse's Notes [facility] Name: Kamala Castillo Age: 32 yrs Sex: Female : 1990 Arrival Date: 08/28/2023 Time: 22:08 Bed 3 Private MD: Diagnosis: Syncope Near;Viral infection, unspecified;Hyperventilation;Hypokalemia Presentation: 08/27 22:15 Chief complaint: Patient states: I was cooking dinner and suddenly got light headed. I jb4 have tingling in my face and cramping and numbness in my right hand and both feet. Coronavirus screen: At this time, the client does not indicate any symptoms associated with coronavirus-19. Ebola Screen: No symptoms or risks identified at this time. Initial Sepsis Screen: Does the patient meet any 2 criteria? No. Patient's initial sepsis screen is negative. Does the patient have a suspected source of infection? No. Patient's initial sepsis screen is negative. Risk Assessment: Do you want to hurt yourself or someone else? Patient reports no desire to harm self or others. Onset of symptoms was August 28, 2023. Transition of care: patient was not received from another setting of care. 22:15 Method Of Arrival: Ambulatory jb4 22:15 Acuity: BOO 3 jb4 Triage Assessment: 22:16 General: Appears in no apparent distress. uncomfortable, Behavior is cooperative, jb4 anxious, crying. Pain: Complains of pain in right hand, right foot and left foot Pain does not radiate. Pain currently is 7 out of 10 on a pain scale. EENT: No signs and/or symptoms were reported regarding the EENT system. Neuro: Level of Consciousness is awake, alert, obeys commands, Oriented to person, place, time, situation. Cardiovascular: Patient's skin is warm and dry. Respiratory: Airway is patent Respiratory effort is even, unlabored, Respiratory pattern is regular, symmetrical. GI: No signs and/or symptoms were reported involving the gastrointestinal system. : No signs and/or symptoms were reported regarding the genitourinary system. Derm: Skin is intact, Skin is pink, warm \T\ dry. Musculoskeletal: Circulation, motion, and sensation intact. Range of motion: intact in all extremities. Historical: - Allergies: 22:16 No Known Allergies; jb4 - PMHx: 22:16 None; jb4 - PSHx: 22:16 Tonsillectomy; jb4 - Immunization history:: Adult Immunizations up to date. - Infectious Disease History:: Denies. - Social history:: Smoking status: Patient denies any tobacco usage or history of. - Family history:: not pertinent. Screenin:18 [facility] ED Fall Risk Assessment (Adult) History of falling in the last 3 months, rv including since admission No falls in past 3 months (0 pts) Score/Fall Risk Level 0 - 2 = Low Risk Oriented to surroundings, Maintained a safe environment, Educated pt \T\ family on fall prevention, incl call for assistance when getting out of bed, Assessed \T\ reinforced patient's understanding of fall precautions. Abuse screen: Denies threats or abuse. Denies injuries from another. Nutritional screening: No deficits noted. Tuberculosis screening: No symptoms or risk factors identified. Assessment: 08/28 00:04 Reassessment: Patient and/or family updated on plan of care and expected duration. Pain rv level reassessed. Patient is alert, oriented x 3, equal unlabored respirations, skin warm/dry/pink. Patient states feeling better. Patient states symptoms have improved. Vital Signs: 08/27 22:15 BP 133 / 107; Pulse 71; Resp 18; Temp 97.2(O); Pulse Ox 96% on R/A; Weight 63.5 kg; jb4 Height 4 ft. 11 in. ; 08/28 00:04 BP 124 / 72; Pulse 76; Resp 17; Temp 98; Pulse Ox 99% on R/A; rv 08/27 22:15 Body Mass Index 28.28 (63.50 kg, 149.86 cm) jb4 [place] Coma Score: 00:04 Eye Response: spontaneous(4). Motor Response: obeys commands(6). Verbal Response: rv oriented(5). Total: 15. ED Course: 08/27 22:09 Patient arrived in ED. gm2 22:13 Paresh Senior MD is Attending Physician. shira 22:16 Triage completed. jb4 22:16 Arm band placed on right wrist. jb4 22:18 Chaparro Bradley RN is Primary Nurse. rv 22:18 Patient has correct armband on for positive identification. Client placed on continuous rv cardiac and pulse oximetry monitoring. NIBP monitoring applied. yard associate on. 22:18 No provider procedures requiring assistance completed. rv 22:34 CBC with Diff Sent. jb4 22:34 Comprehensive Metabolic Panel Sent. jb4 22:34 Flu Sent. jb4 22:34 SARS RAPID Sent. jb4 22:35 Strep Sent. jb4 23:35 PREGU Sent. jb4 23:35 Urinalysis w/ reflexes Sent. jb4 08/28 00:05 IV discontinued, intact, bleeding controlled, No redness/swelling at site. Pressure rv dressing applied. Administered Medications: 08/27 22:29 Drug: NS 0.9% IV 1000 ml IV at 1 bolus Per protocol; 1000 mL bolus Route: IV; Rate: 1 jb4 bolus; Site: right antecubital; :27 Follow up: Response: No adverse reaction; IV Status: Completed infusion; IV Intake: jb4 1000ml 23:27 Drug: Potassium PO Effervescent Tablet 25 mEq PO once; dissolve in 4 ounces of water or jb4 juice Route: PO; 08/28 00:05 Follow up: Response: No adverse reaction rv Medication: 08/27 22:18 VIS not applicable for this client. rv Intake: 23:27 IV: 1000ml; Total: 1000ml. jb4 Outcome: 23:42 Discharge ordered by . shira 08/28 00:05 Discharged to home ambulatory, rv Condition: good Discharge instructions given to patient, Instructed on discharge instructions, follow up and referral plans. medication usage, Demonstrated understanding of instructions, follow-up care, medications, Prescriptions given X 2, 00:05 Patient left the ED. rv Signatures: Paresh Senior MD MD cha Bryson, James RN RN reji Chaparro Bradley, RN RN Isabella Lu 2
[2023-08-28 23:47] LABS: Specific Gravity 1.025 (1.005-1.030); Sqamous Epithelial <5 /HPF (None Seen); Urine Bacteria <20 /HPF (<20); Urine Bilirubin NEGATIVE (Negative); Urine Blood 1+ (Negative); Urine Clarity Extremely Turbid (Clear); Urine Color Yellow (Yellow); Urine Culture Reflex Order NOT NEEDED; Urine Glucose NEGATIVE (Negative); Urine Ketones 1+ (Negative); Urine Microscopic Reflex YN ORDER UMIC; Urine Mucus 4+ /HPF (None Seen); Urine Nitrite NEGATIVE (Negative); Urine Protein 1+ (Negative); Urine Urobilinogen Normal (Normal); Urine pH 6.5 (5.0-7.0)
[2023-08-29 01:12] VITALS: BP 124/72; TEMP 98; O2SAT 99
--- NOTE | 2023-08-31 13:02 | EKG ---
Test Date: 2023-08-28 Test Time: 22:12:39 Peripheral Equipment Operator: YNES MEASUREMENT RESULTS: Intervals: Rate: 69 CO: 152 QRSD: 90 QT: 396 QTc: 424 Wirt: P: 39 CO: 152 QRS: 48 T: 24 INTERPRETIVE STATEMENTS: Normal sinus rhythm Normal ECG No previous ECG available for comparison Electronically Signed On 08-31-23 12:56:08 CDT by Shaji Palencia
== END 2023-08-29 00:05 | disposition home or self-care (01) ==
LOC: ER 22:08
DX: R55 Syncope and collapse (principal); B34.9 Viral infection, unspecified; R06.4 Hyperventilation; E87.6 Hypokalemia; Z11.52 Encounter for screening for COVID-19
CPT/HCPCS: 36415; 80053; 81001; 81025; 85025; 87070; 87081; 87804; 87811; 93005; 96360; 99285; J7030

== ENCOUNTER 2023-12-16 00:22 | Emergency (ER) | payer SELFPAY ==
--- OUTSIDE RECORDS SUMMARY | 2023-12-16 00:28 | XMS REPORT | Continuity of Care Document ---
Author Name Unknown Address [address] [place] [address] [facility] [address] [place] [address] Care Team Providers Care Craps Manager Name Role Phone Melissa Boggs Primary Care Physician [phone] HONORIO HERNANDEZ Attending Clinician Unavailable PARVEZ EVANS Attending Clinician Unavail able Doris Hutchins Attending Clinician [phone] Doctor Unassigned, [place] Attending Clinician U EVELYNE Silvestre Attending Clinician EVELYNE Casillas Attending Clinician ASHLEY Michelle Attending Clinician Fam berkowitz [facility], [facility] Attending Clinician Aslhey Sevilla CNM Attending Clinician [phone] ADRIANNE COLLADO Attending Clinician UnavailYang Carvalho MD Attending Clinician [phone] LINDA CHRISTIANSON Attending Clinician Linda Rowland MD Attending Clinician [phone] [facility], [facility] Main Attending Clinician Dior Ramírez MD, Dank Attending Clinician [phone] DANK RAMÍREZ Attending Clinician KELSEA Limon Attending Clinician Unavailable Josue Mart PA-C Attending Clinician [phone] Unknown, Attending Attending Clinician JOSUE Larson Attending Clinician Unavailable Stalin KAUFMAN, Paz Attending Clinician Dank Ozuna MD Attending Clinician DANK OZUNA Attending Clinician Unavail able Kimberly MENA, Kelsea Attending Clinician [phone] Konstantin KAUFMAN, Honorio Yin Attending Clinician Flor Hayden MD Attending Clinician [phone] FLOR HAYDEN Attending Clinician Unavailable 2, [facility] Attending Clinician Unavailable Ashley Johansen MA Attending Clinician Unavailluz Moulton RN, Lilian Jaramillo Attending Clinician HONORIO Thompson Admitting Clinician Unavailable Payers Payer Name Policy Type Policy Number Effective Date Expirati on Date Source [employer] [id number] 2019 00:00:00 Problems Condition Name Condition Details Condition Category Status Onset Date Resolution Date Last Treatment Date Treating Clinician Comments Source ASCUS with positive high risk HPV cervical ASCUS with positive high risk HPV cervical Disease Active 18 [facility]: [facility] Encounter for screening for maternal depression Encounter for screening for maternal depression Disease Active 05-10 00:00: 00 [facility] Obesity (BMI 30-39.9) Obesity (BMI 30-39.9) Disease Active 2016-05 00:00: 00 [facility] History of asthma History of asthma Disease Active 09-13 00:00: 00 [facility] Allergies, Adverse Reactions, Alerts Allergy Name Allergy Type Status Severity Reaction(s) Onset Date Inactive Date Treating Clinician Comments Source NO KNOWN ALLERGIE S Drug Class Active [facility] Social History Social Habit Start Date Stop Date Quantity Comments Source [facility] Alcoholic beverage intake 2023-09-22 00:00:00 2023-09-22 00:00:00 Current drinker of alcohol (finding) [facility] Alcohol Comment 2023-09-22 00:00:00 2023-09-22 00:00:00 social [facility] Exposure to SARS-CoV-2 (event) 2022-09-05 00:00:00 2022-09-15 09:49:00 Not sure [facility] Tobacco use and exposure 2021-11-18 00:00:00 2021-11-18 00:00:00 Smokeless tobacco non-user [facility] History of Social function 2020-08-16 00:00:00 2020-08-16 00:00:00 [facility] Alcohol intake 2019-12-08 00:00:00 2019-12-08 00:00:00 0 /d [facility] History of tobacco use 2013-05-04 00:00:00 Cigarette Smoker [facility] Sex assigned at 1990 00:00:00 1990 00:00:00 [facility] Smoking Status Start Date Stop Date Source Ex-smoker 2021-11-18 00:00:00 2021-11-18 [facility] Medic[facility] Ordered Medication Name Filled Medication Name Start Date Stop Date Current Medication? Ordering Clinician Indication Dosage Frequency Signature (SIG) Comments Components Source fluconazole 150 mg tablet 09-23 00:00: 00 09-24 04:59 :00 Yes [id number] 150mg Take 1 tablet by mouth once now for 1 dose. [facility] triamcinolo ne acetonide 0.1 % cream 09-30 00:00: 00 Yes [id number] Apply to area(s) 2 (two) times daily. [facility] tretinoin 0.025 % cream 09-15 00:00: 00 Yes [id number] Apply to area(s) at bedtime. [facility] clindamycin 1 % gel 09-15 00:00: 00 Yes [id number] Apply to area(s) every morning. [facility] doxycycline monohydrate 100 mg capsule 09-15 00:00: 00 Yes [id number] 100mg Take 1 capsule by mouth in the morning and 1 capsule in the evening. [facility] benzoyl peroxide 10 % external wash 09-15 00:00: 00 Yes [id number] Apply to area(s) 2 (two) times daily. [facility] clindamycin 1 % gel 5-15 00:00: 00 Yes [id number] Apply to area(s) every morning. [facility] LOESTRIN FE (LOESTRIN FE 05/23) 1 mg-20 mcg (21)/75 mg (7) tablet 5-02 00:00: 00 Yes [id number] 1{tbl} Take 1 tablet by mouth in the morning. [facility] terbinafine HCL 250 mg tablet -16 00:00: 00 09-01 04:59 :00 No [id number] 250mg Take 1 tablet by mouth in the morning for 14 days. [facility] spironolact one 50 mg tablet 06-18 00:00: 00 Yes [id number] 50mg Take 1 tablet by mouth in the morning and 1 tablet in the evening. [facility] tretinoin 0.025 % cream 06-18 00:00: 00 09-15 00:00 :00 No [id number] Apply to affected area(s) at bedtime. [facility] clindamycin 1 % gel 06-18 00:00: 00 09-15 00:00 :00 No [id number] Apply to affected area(s) every morning[facility] No known medications 05-29 15:53: 50 No No known medication [facility] No known medications 2021-05 13:56: 37 No No known medication s [facility] Nitrofurant oin&Nit. Macrocryst 100 mg capsule 2021-05 00:00: 00 03-16 05:59 :00 No [id number] 100mg Take 1 capsule by mouth in the morning and 1 capsule in the evening. Do all this for 5 days. [facility] phenazopyri dine 100 mg tablet 2021-05 00:00: 00 03-13 05:59 :00 No [id number] 200mg Take 2 tablets by mouth in the morning and 2 tablets at noon and 2 tablets in the evening. Do all this for 2 days. [facility] No known medications 18 17:27: 58 No No known medication s [facility] Diphenhydra mine-Acetam inophen (TYLENOL PM EXTRA STRENGTH) 25-500 mg Tab 2019-05 10:40: 11 03-23 00:00 :00 No 2{tbl} Take 2 tablets by mouth. Indication s: takes for tooth pain [facility] Nitrofurant oin&Nit. Macrocryst (MACROBID) 100 mg capsule 9 00:00: 03-23 00:00 :00 No [id number] 100mg Take 1 capsule by mouth 2 (two) times daily. [facility] metroNIDAZO LE 500 mg tablet 12-05 00:00: 00 01-22 00:00 :00 No [id number] 500mg Take 1 tablet by mouth every 12 (twelve) hours. [facility] ferrous sulfate 325 mg (65 mg iron) tablet 01-29 00:00: 00 03-23 00:00 :00 No [id number] 325mg Take 1 tablet by mouth 2 (two) times daily. [facility] PNV 67-iron ps-folate no.1-dha (VITAFOL ULTRA) 29 mg iron- 1 mg-200 mg Cap -16 00:00: 00 03-23 00:00 :00 No 1{each} Take 1 Each by mouth daily. [facility] Immunizations Ordered Immunization Name Filled Immunization Name Date Status Comments Source TDAP 2017-02-11 00:00:00 Completed [facility] TDAP 2017-02-11 00:00:00 Completed [facility] TDAP 2017-02-11 00:00:00 Completed [facility] TDAP 2017-02-11 00:00:00 Completed [facility] TDAP 2017-02-11 00:00:00 Completed [facility] TDAP 2017-02-11 00:00:00 Completed [facility] TDAP 2017-02-11 00:00:00 Completed [facility] TDAP 2017-02-11 00:00:00 Completed [facility] TDAP 2017-02-11 00:00:00 Completed [facility] TDAP 2017-02-11 00:00:00 Completed [facility] TDAP 2017-02-11 00:00:00 Completed [facility] TDAP 2017-02-11 00:00:00 Completed [facility] TDAP 2017-02-11 00:00:00 Completed [facility] TDAP 2017-02-11 00:00:00 Completed [facility] TDAP 2017-02-11 00:00:00 Completed [facility] TDAP 2017-02-11 00:00:00 Completed [facility] TDAP 2017-02-11 00:00:00 Completed [facility] TDAP 2017-02-11 00:00:00 Completed [facility] TDAP 2017-02-11 00:00:00 Completed [facility] TDAP 2017-02-11 00:00:00 Completed [facility] TDAP 2017-02-11 00:00:00 Completed [facility] TDAP 2017-02-11 00:00:00 Completed [facility] TDAP 2017-02-11 00:00:00 Completed [facility] TDAP 2017-02-11 00:00:00 Completed [facility] TDAP 2017-02-11 00:00:00 Completed [facility] TDAP 2017-02-11 00:00:00 Completed [facility] TDAP 2017-02-11 00:00:00 Completed [facility] TDAP 2017-02-11 00:00:00 Completed [facility] TDAP 2017-02-11 00:00:00 Completed [facility] TDAP 2017-02-11 00:00:00 Completed [facility] HPV 2015-11-02 00:00:00 Completed [facility] HPV 2015-11-02 00:00:00 Completed [facility] HPV 2015-11-02 00:00:00 Completed [facility] HPV 2015-11-02 00:00:00 Completed [facility] HPV 2015-11-02 00:00:00 Completed [facility] HPV 2015-11-02 00:00:00 Completed [facility] HPV 2015-11-02 00:00:00 Completed [facility] HPV 2015-11-02 00:00:00 Completed [facility] HPV 2015-11-02 00:00:00 Completed [facility] HPV 2015-11-02 00:00:00 Completed [facility] HPV 2015-11-02 00:00:00 Completed [facility] HPV 2015-11-02 00:00:00 Completed [facility] HPV 2015-11-02 00:00:00 Completed [facility] HPV 2015-11-02 00:00:00 Completed [facility] HPV 2015-11-02 00:00:00 Completed [facility] HPV 2015-11-02 00:00:00 Completed [facility] HPV 2015-11-02 00:00:00 Completed [facility] HPV 2015-11-02 00:00:00 Completed [facility] HPV 2015-11-02 00:00:00 Completed [facility] HPV 2015-11-02 00:00:00 Completed [facility] HPV 2015-11-02 00:00:00 Completed [facility] HPV 2015-11-02 00:00:00 Completed [facility] HPV 2015-11-02 00:00:00 Completed [facility] HPV 2015-11-02 00:00:00 Completed [facility] HPV 2015-11-02 00:00:00 Completed [facility] HPV 2015-11-02 00:00:00 Completed [facility] HPV 2015-11-02 00:00:00 Completed [facility] HPV 2015-11-02 00:00:00 Completed [facility] HPV 2015-11-02 00:00:00 Completed [facility] HPV 2015-11-02 00:00:00 Completed [facility] HPV 2015-06-12 00:00:00 Completed [facility] HPV 2015-06-12 00:00:00 Completed [facility] HPV 2015-06-12 00:00:00 Completed [facility] HPV 2015-06-12 00:00:00 Completed [facility] HPV 2015-06-12 00:00:00 Completed [facility] HPV 2015-06-12 00:00:00 Completed [facility] HPV 2015-06-12 00:00:00 Completed [facility] HPV 2015-06-12 00:00:00 Completed [facility] HPV 2015-06-12 00:00:00 Completed [facility] HPV 2015-06-12 00:00:00 Completed [facility] HPV 2015-06-12 00:00:00 Completed [facility] HPV 2015-06-12 00:00:00 Completed [facility] HPV 2015-06-12 00:00:00 Completed [facility] HPV 2015-06-12 00:00:00 Completed [facility] HPV 2015-06-12 00:00:00 Completed [facility] HPV 2015-06-12 00:00:00 Completed [facility] HPV 2015-06-12 00:00:00 Completed [facility] HPV 2015-06-12 00:00:00 Completed [facility] HPV 2015-06-12 00:00:00 Completed [facility] HPV 2015-06-12 00:00:00 Completed [facility] HPV 2015-06-12 00:00:00 Completed [facility] HPV 2015-06-12 00:00:00 Completed [facility] HPV 2015-06-12 00:00:00 Completed [facility] HPV 2015-06-12 00:00:00 Completed [facility] HPV 2015-06-12 00:00:00 Completed [facility] HPV 2015-06-12 00:00:00 Completed [facility] HPV 2015-06-12 00:00:00 Completed [facility] HPV 2015-06-12 00:00:00 Completed [facility] HPV 2015-06-12 00:00:00 Completed [facility] HPV 2015-06-12 00:00:00 Completed [facility] HPV 2015-04-04 00:00:00 Completed [facility] HPV 2015-04-04 00:00:00 Completed [facility] HPV 2015-04-04 00:00:00 Completed [facility] HPV 2015-04-04 00:00:00 Completed [facility] HPV 2015-04-04 00:00:00 Completed [facility] HPV 2015-04-04 00:00:00 Completed [facility] HPV 2015-04-04 00:00:00 Completed [facility] HPV 2015-04-04 00:00:00 Completed [facility] HPV 2015-04-04 00:00:00 Completed [facility] HPV 2015-04-04 00:00:00 Completed [facility] HPV 2015-04-04 00:00:00 Completed [facility] HPV 2015-04-04 00:00:00 Completed [facility] HPV 2015-04-04 00:00:00 Completed [facility] HPV 2015-04-04 00:00:00 Completed [facility] HPV 2015-04-04 00:00:00 Completed [facility] HPV 2015-04-04 00:00:00 Completed [facility] HPV 2015-04-04 00:00:00 Completed [facility] HPV 2015-04-04 00:00:00 Completed [facility] HPV 2015-04-04 00:00:00 Completed [facility] HPV 2015-04-04 00:00:00 Completed [facility] HPV 2015-04-04 00:00:00 Completed [facility] HPV 2015-04-04 00:00:00 Completed [facility] HPV 2015-04-04 00:00:00 Completed [facility] HPV 2015-04-04 00:00:00 Completed [facility] HPV 2015-04-04 00:00:00 Completed [facility] HPV 2015-04-04 00:00:00 Completed [facility] HPV 2015-04-04 00:00:00 Completed [facility] HPV 2015-04-04 00:00:00 Completed [facility] HPV 2015-04-04 00:00:00 Completed [facility] HPV 2015-04-04 00:00:00 Completed [facility] Rubella 2011-10-06 00:00:00 Completed [facility] TDAP 2011-10-06 00:00:00 Completed [facility] Rubella 2011-10-06 00:00:00 Completed [facility] TDAP 2011-10-06 00:00:00 Completed [facility] Rubella 2011-10-06 00:00:00 Completed [facility] TDAP 2011-10-06 00:00:00 Completed [facility] Rubella 2011-10-06 00:00:00 Completed [facility] TDAP 2011-10-06 00:00:00 Completed [facility] Rubella 2011-10-06 00:00:00 Completed [facility] TDAP 2011-10-06 00:00:00 Completed [facility] Rubella 2011-10-06 00:00:00 Completed [facility] TDAP 2011-10-06 00:00:00 Completed [facility] Rubella 2011-10-06 00:00:00 Completed [facility] TDAP 2011-10-06 00:00:00 Completed [facility] Rubella 2011-10-06 00:00:00 Completed [facility] TDAP 2011-10-06 00:00:00 Completed [facility] Rubella 2011-10-06 00:00:00 Completed [facility] TDAP 2011-10-06 00:00:00 Completed [facility] Rubella 2011-10-06 00:00:00 Completed [facility] TDAP 2011-10-06 00:00:00 Completed [facility] Rubella 2011-10-06 00:00:00 Completed [facility] TDAP 2011-10-06 00:00:00 Completed [facility] Rubella 2011-10-06 00:00:00 Completed [facility] TDAP 2011-10-06 00:00:00 Completed [facility] Rubella 2011-10-06 00:00:00 Completed [facility] TDAP 2011-10-06 00:00:00 Completed [facility] Rubella 2011-10-06 00:00:00 Completed [facility] TDAP 2011-10-06 00:00:00 Completed [facility] Rubella 2011-10-06 00:00:00 Completed [facility] TDAP 2011-10-06 00:00:00 Completed [facility] Rubella 2011-10-06 00:00:00 Completed [facility] TDAP 2011-10-06 00:00:00 Completed [facility] Rubella 2011-10-06 00:00:00 Completed [facility] TDAP 2011-10-06 00:00:00 Completed [facility] Rubella 2011-10-06 00:00:00 Completed [facility] TDAP 2011-10-06 00:00:00 Completed [facility] Rubella 2011-10-06 00:00:00 Completed [facility] TDAP 2011-10-06 00:00:00 Completed [facility] Rubella 2011-10-06 00:00:00 Completed [facility] TDAP 2011-10-06 00:00:00 Completed [facility] Rubella 2011-10-06 00:00:00 Completed [facility] TDAP 2011-10-06 00:00:00 Completed [facility] Rubella 2011-10-06 00:00:00 Completed [facility] TDAP 2011-10-06 00:00:00 Completed [facility] Rubella 2011-10-06 00:00:00 Completed [facility] TDAP 2011-10-06 00:00:00 Completed [facility] Rubella 2011-10-06 00:00:00 Completed [facility] TDAP 2011-10-06 00:00:00 Completed [facility] Rubella 2011-10-06 00:00:00 Completed [facility] TDAP 2011-10-06 00:00:00 Completed [facility] Rubella 2011-10-06 00:00:00 Completed [facility] TDAP 2011-10-06 00:00:00 Completed [facility] Rubella 2011-10-06 00:00:00 Completed [facility] TDAP 2011-10-06 00:00:00 Completed [facility] Rubella 2011-10-06 00:00:00 Completed [facility] TDAP 2011-10-06 00:00:00 Completed [facility] Rubella 2011-10-06 00:00:00 Completed [facility] TDAP 2011-10-06 00:00:00 Completed [facility] Rubella 2011-10-06 00:00:00 Completed [facility] TDAP 2011-10-06 00:00:00 Completed [facility] Influenza Virus Vaccine 2008-03-18 00:00:00 Completed [facility] Influenza Virus Vaccine 2008-03-18 00:00:00 Completed [facility] Influenza Virus Vaccine 2008-03-18 00:00:00 Completed [facility] Influenza Virus Vaccine 2008-03-18 00:00:00 Completed [facility] Influenza Virus Vaccine 2008-03-18 00:00:00 Completed [facility] Influenza Virus Vaccine 2008-03-18 00:00:00 Completed [facility] Influenza Virus Vaccine 2008-03-18 00:00:00 Completed [facility] Influenza Virus Vaccine 2008-03-18 00:00:00 Completed [facility] Influenza Virus Vaccine 2008-03-18 00:00:00 Completed [facility] Influenza Virus Vaccine 2008-03-18 00:00:00 Completed [facility] Influenza Virus Vaccine 2008-03-18 00:00:00 Completed [facility] Influenza Virus Vaccine 2008-03-18 00:00:00 Completed [facility] Influenza Virus Vaccine 2008-03-18 00:00:00 Completed [facility] Influenza Virus Vaccine 2008-03-18 00:00:00 Completed [facility] Influenza Virus Vaccine 2008-03-18 00:00:00 Completed [facility] Influenza Virus Vaccine 2008-03-18 00:00:00 Completed [facility] Influenza Virus Vaccine 2008-03-18 00:00:00 Completed [facility] Influenza Virus Vaccine 2008-03-18 00:00:00 Completed [facility] Influenza Virus Vaccine 2008-03-18 00:00:00 Completed [facility] Influenza Virus Vaccine 2008-03-18 00:00:00 Completed [facility] Influenza Virus Vaccine 2008-03-18 00:00:00 Completed [facility] Influenza Virus Vaccine 2008-03-18 00:00:00 Completed [facility] Influenza Virus Vaccine 2008-03-18 00:00:00 Completed [facility] Influenza Virus Vaccine 2008-03-18 00:00:00 Completed [facility] Influenza Virus Vaccine 2008-03-18 00:00:00 Completed [facility] Influenza Virus Vaccine 2008-03-18 00:00:00 Completed [facility] Influenza Virus Vaccine 2008-03-18 00:00:00 Completed [facility] Influenza Virus Vaccine 2008-03-18 00:00:00 Completed [facility] Influenza Virus Vaccine 2008-03-18 00:00:00 Completed [facility] Influenza Virus Vaccine 2008-03-18 00:00:00 Completed [facility] Influenza Virus Vaccine Unknown Completed [facility] Rubella Unknown Completed [facility] TDAP Unknown Completed [facility] HPV Unknown Completed [facility] HPV Unknown Completed [facility] HPV Unknown Completed [facility] TDAP Unknown Completed [facility] Influenza Virus Vaccine Unknown Completed [facility] Rubella Unknown Completed [facility] TDAP Unknown Completed [facility] HPV Unknown Completed [facility] HPV Unknown Completed [facility] HPV Unknown Completed [facility] TDAP Unknown Completed [facility] Influenza Virus Vaccine Unknown Completed [facility] Rubella Unknown Completed [facility] TDAP Unknown Completed [facility] HPV Unknown Completed [facility] HPV Unknown Completed [facility] HPV Unknown Completed [facility] TDAP Unknown Completed [facility] Influenza Virus Vaccine Unknown Completed [facility] Rubella Unknown Completed [facility] TDAP Unknown Completed [facility] HPV Unknown Completed [facility] HPV Unknown Completed [facility] HPV Unknown Completed [facility] TDAP Unknown Completed [facility] Influenza Virus Vaccine Unknown Completed [facility] Rubella Unknown Completed [facility] TDAP Unknown Completed [facility] HPV Unknown Completed [facility] HPV Unknown Completed [facility] HPV Unknown Completed [facility] TDAP Unknown Completed [facility] Influenza Virus Vaccine Unknown Completed [facility] Rubella Unknown Completed [facility] TDAP Unknown Completed [facility] HPV Unknown Completed [facility] HPV Unknown Completed [facility] HPV Unknown Completed [facility] TDAP Unknown Completed [facility] Influenza Virus Vaccine Unknown Completed [facility] Rubella Unknown Completed [facility] TDAP Unknown Completed [facility] HPV Unknown Completed [facility] HPV Unknown Completed [facility] HPV Unknown Completed [facility] TDAP Unknown Completed [facility] Influenza Virus Vaccine Unknown Completed [facility] Rubella Unknown Completed [facility] TDAP Unknown Completed [facility] HPV Unknown Completed [facility] HPV Unknown Completed [facility] HPV Unknown Completed [facility] TDAP Unknown [facility]pleted [facility] Influenza Virus Vaccine Unknown Completed [facility] Rubella Unknown Completed [facility] TDAP Unknown Completed [facility] HPV Unknown Completed [facility] HPV Unknown Completed [facility] HPV Unknown Completed [facility] TDAP Unknown Completed [facility] Influenza Virus Vaccine Unknown Completed [facility] Rubella Unknown Completed [facility] TDAP Unknown Completed [facility] HPV Unknown Completed [facility] HPV Unknown Completed [facility] HPV Unknown Completed [facility] TDAP Unknown Completed [facility] Influenza Virus Vaccine Unknown Completed [facility] Rubella Unknown Completed [facility] TDAP Unknown Completed [facility] HPV Unknown Completed [facility] HPV Unknown Completed [facility] HPV Unknown Completed [facility] TDAP Unknown Completed [facility] Vital Signs Vital Name Observation Time Observation Value Comments S ource Systolic blood pressure 2023-09-22 15:04:00 108 mm[Hg] [facility] Diastolic blood pressure 2023-09-22 15:04:00 72 mm[Hg] [facility] [facility] Heart [facility] 2023-09-22 15:04:00 70 /min [facility] Body temperature 2023-09-22 15:04:00 36.11 [facility] Respiratory rate 2023-09-22 15:04:00 18 /min [facility] Body height 2023-09-22 15:04:00 149.9 cm [facility] Body weight 2023-09-22 15:04:00 65.409 kg [facility] BMI 2023-09-22 15:04:00 29.12 kg/m2 [facility] Systolic blood pressure 2022-09-02 21:38:00 111 mm[Hg] [facility] Diastolic blood pressure 2022-09-02 21:38:00 73 mm[Hg] [place] [facility] Heart rate 2022-09-02 21:38:00 68 /min [facility] Body temperature 2022-09-02 21:38:00 36.56 [facility] Respiratory rate 2022-09-02 21:38:00 18 /min [facility] Body height 2022-09-02 21:38:00 149.9 cm [facility] Body weight 2022-09-02 21:38:00 62.596 kg [facility] BMI 2022-09-02 21:38:00 27.87 kg/m2 [facility] Systolic blood pressure 2022-08-18 00:17:00 110 mm[Hg] [facility] Diastolic blood pressure 2022-08-18 00:17:00 59 mm[Hg] [facility] Heart rate 2022-08-18 00:17:00 78 /min [facility] Body temperature 2022-08-18 00:17:00 36.78 [facility] Respiratory rate 2022-08-18 00:17:00 16 /min [facility] Body weight 2022-08-18 00:17:00 61.236 kg [facility] BMI 2022-08-18 00:17:00 27.27 kg/m2 [facility] Oxygen saturation in Arterial blood by Pulse oximetry 2022-08-18 00:17:00 98 /min [facility] Systolic blood pressure 2022-05-29 21:16:00 128 mm[Hg] [facility] Diastolic blood pressure 2022-05-29 21:16:00 79 mm[Hg] [facility] Heart rate 2022-05-29 21:16:00 76 /min [facility] Body temperature 2022-05-29 21:16:00 36.72 [facility] Body height 2022-05-29 21:16:00 149.9 cm [facility] Body weight 2022-05-29 21:16:00 59.966 kg [facility] BMI 2022-05-29 21:16:00 26.70 kg/m2 [facility] Systolic blood pressure 2022-03-10 19:44:00 115 mm[Hg] [facility] Diastolic blood pressure 2022-03-10 19:44:00 81 mm[Hg] [facility] Heart rate 2022-03-10 19:44:00 76 /min [facility] Body temperature 2022-03-10 19:44:00 36.72 [facility] Respiratory rate 2022-03-10 19:44:00 16 /min [facility] Body weight 2022-03-10 19:44:00 58.196 kg [facility] BMI 2022-03-10 19:44:00 25.91 kg/m2 [facility] Oxygen saturation in Arterial blood by Pulse oximetry 2022-03-10 19:44:00 99 /min [facility] Systolic blood pressure 2021-11-18 19:11:00 108 mm[Hg] [facility] Diastolic blood pressure 2021-11-18 19:11:00 72 mm[Hg] [facility] Heart rate 2021-11-18 19:11:00 77 /min [facility] Body temperature 2021-11-18 19:11:00 36.94 [facility] Body height 2021-11-18 19:11:00 149.9 cm [facility] Body weight 2021-11-18 19:11:00 55.702 kg [facility] BMI 2021-11-18 19:11:00 24.80 kg/m2 [facility] Procedures Procedure Date / Time Performed Performing Clinician Source [facility] PATIENT FINANCIAL POLICY 2022-08-18 00:12:13 Doctor Unassigned, [facility] INSURANCE CORRESPONDENCE 2022-06-28 06:01:00 Doc tor Unassigned, [facility] POCT URINALYSIS 2022-03-10 19:51:00 Flor Hayden [facility] ASSIGNMENT OF BENEFITS 2022-03-10 19:15:08 Docto r Unassigned, [facility] DISCLOSURE AND CONSENT, MEDICAL AND SURGICAL PROCEDURES 2021-11-06 05:01:00 Doctor Unassigned, [facility] Encounters Start Date/Time End Date/Time Encounter Type Admission Type Attending [facility] Facility Care Department Encounter ID Source 2021-03-02 16:05:39 Outpatient R HONORIO HERNANDEZ [facility] [id number] [facility] 2021-03-02 06:08:38 Outpatient P [facility] MIRI [id number] [facility] 2023-09-24 00:00:00 2023-09-24 15:58:41 Telephone Doris Plascencia [facility] 1..840.114 350.1.13.10 4.2.7.2.686 [id number] [facility] 2023-09-23 00:00:00 2023-09-24 06:50:04 Patient Secure Msg Doctor Unassigned, [facility] 1..840.114 350.1.13.10 4.2.7.2.686 [id number] [facility] 2023-09-22 11:30:00 2023-09-22 11:30:00 Outpatient R MANSOOR-ERLINDA S, EVELYNE MANSOOR-ERLINDA S, EVELYNE [facility] [id number] [facility] 2023-09-22 10:00:00 2023-09-22 10:44:43 Outpatient R ASHLEY DALEY [facility] [id number] [facility] 2023-09-22 10:00:00 2023-09-22 10:44:43 Office Visit Provider, DoronRmchAshley Deluna [facility] 1..840.114 350.1.13.10 4.2.7.2.686 [id number] [facility] 2023-04-03 09:51:03 2023-04-03 09:51:03 Outpatient [facility] [id number] Micah Reardon 2022-12-18 11:30:00 2022-12-18 11:30:00 Outpatient ADRIANNE MARTINEZ [facility] [id number] [facility] 2022-09-30 00:00:00 2022-09-30 00:00:00 Patient Secure Msg Yang Guthrie [facility] 1.2840.114 350.1.13.10 4.2.7.2.686 [id number] [facility] 2022-09-25 00:00:00 2022-09-25 00:00:00 Patient Secure Msg Yang Guthrie [facility] 1.2840.114 350.1.13.10 4.2.7.2.686 [id number] [facility] 2022-09-17 00:00:00 2022-09-17 00:00:00 Telephone Yang Guthrie [facility] 1.20.114 350.1.13.10 4.2.7.2.686 [id number] [facility] 2022-09-15 10:15:00 2022-09-15 11:24:56 Outpatient LINDA LÓPEZ [facility] [id number] [facility] 2022-09-15 10:15:00 2022-09-15 11:24:56 Office Visit Yang Guthrie Bernard R [facility] 1.20.114 350.1.13.10 4.2.7.2.686 [id number] [facility] 2022-09-15 00:00:00 2022-09-15 00:00:00 Telephone Yang Guthrie [facility] 1.2.840.114 350.1.13.10 4.2.7.2.686 [id number] [facility] 2022-09-02 17:15:00 2022-09-02 17:30:00 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 Sales Manager Visit Pob, Adc Lab Dank Bravo [facility] 1.840.114 350.1.13.10 4.2.7.2.686 [id number] [facility] 2022-09-02 17:15:00 2022-09-02 17:15:00 Outpatient DANK LOPEZ [facility] [id number] [facility] 2022-09-02 16:00:00 2022-09-02 17:00:01 Office Visit Evelyne Ca [facility] 1.84.114 350.1.13.10 4.2.7.2.686 [id number] [facility] 2022-08-17 19:00:00 2022-08-17 19:20:00 Urgent Care Josue Mart Unknown, Attending [facility] 1.284.114 350.1.13.10 4.2.7.2.686 [id number] [facility] 2022-08-17 19:00:00 2022-08-17 19:00:00 Outpatient JOSUE STEPHENS [facility] [id number] [facility] 2022-08-17 00:00:00 2022-08-17 00:00:00 Orders Only Doctor Unassigned, [facility] 1.20.114 350.1.13.10 4.2.7.2.686 [id number] [facility] 2022-07-04 00:00:00 2022-07-04 00:00:00 Telephone Paz Gant [facility] 1.840.114 350.1.13.10 4.2.7.2.686 [id number] [facility] 2022-06-28 00:00:00 2022-06-28 00:00:00 Orders Only Doctor Unassigned, [facility] 1.840.114 350.1.13.10 4.2.7.2.686 [id number] [facility] 2022-06-24 00:00:00 2022-06-24 00:00:00 Telephone Paz Gant [facility] 1.840.114 350.1.13.10 4.2.7.2.686 [id number] [facility] 2022-06-18 10:45:00 2022-06-18 11:00:00 Office Visit Paz Gant Michael G [facility] 1.0.114 350.1.13.10 4.2.7.2.686 [id number] [facility] 2022-06-18 10:45:00 2022-06-18 10:45:00 Outpatient R DANK OZUNA [facility] [id number] [facility] 2022-06-09 00:00:00 2022-06-09 00:00:00 Patient Secure Msg Kimberly [facility] 1..114 350.1.13.10 4.2.7.2.686 [id number] [facility] 2022-06-09 00:00:00 2022-06-09 00:00:00 Patient Secure Msg Kimber[facility] 1.840.114 350.1.13.10 4.2.7.2.686 [id number] [facility] 2022-05-29 15:00:00 2022-05-29 15:55:43 Outpatient R HONORIO HERNANDEZ [facility] [id number] [facility] 2022-05-29 15:00:00 2022-05-29 15:55:43 Office Visit [facility] 1.840.114 350.1.13.10 4.2.7.2.686 [id number] [facility] 2022-03-10 13:00:00 2022-03-10 13:20:00 Urgent Care Flor Hayden, Attending [facility] 1..840.114 350.1.13.10 4.2.7.2.686 [id number] [facility] 2022-03-10 13:00:00 2022-03-10 13:00:00 Outpatient R FLOR HAYDEN [facility] [id number] [facility] 2022-03-10 00:00:00 2022-03-10 00:00:00 Orders Only Doctor Unassigned, [facility] 1..840.114 350.1.13.10 4.2.7.2.686 [id number] [facility] 2022-03-10 00:00:00 2022-03-10 00:00:00 Letter (Out) [facility] 1..840.114 350.1.13.10 4.2.7.2.686 [id number] [facility] 2021-11-18 13:30:00 2021-11-18 14:40:17 Outpatient R HONORIO HERNANDEZ [facility] [id number] [facility] 2021-11-18 13:30:00 2021-11-18 14:40:17 Office Visit Honorio Hernandez [facility] 1..840.114 350.1.13.10 4.2.7.2.686 [id number] [facility] 2021-11-18 13:30:00 2021-11-18 14:40:17 Outpatient R HONORIO HERNANDEZ [facility] [id number] [facility] 2021-11-18 13:30:00 2021-11-18 13:30:00 Outpatient R HONORIO HERNANDEZ [facility] [id number] [facility] 2021-11-06 13:00:00 2021-11-06 13:42:53 Outpatient R HONORIO HERNANDEZ [facility] [id number] [facility] 2021-11-06 13:00:00 2021-11-06 13:42:53 Office Visit Honorio Hernandez [facility] 1.2.840.114 350.1.13.10 4.2.7.2.686 [id number] [facility] 2021-11-06 13:00:00 2021-11-06 13:42:53 Outpatient R HONORIO HERNANDEZ [facility] [id number] [facility] 2021-11-06 00:00:00 2021-11-06 00:00:00 Orders Only Doctor Unassigned, [facility] 1..840.114 350.1.13.10 4.2.7.2.686 [id number] [facility] 2021-10-09 13:00:00 2021-10-09 13:00:00 Outpatient R HONORIO HERNANDEZ [facility] [id number] [facility] 2021-09-16 00:00:00 2021-09-16 00:00:00 Telephone Kelsea Harris [facility] 1..840.114 350.1.13.10 4.2.7.2.686 [id number] [facility] 2021-08-29 14:30:00 2021-08-29 14:45:00 Territory Sales Manager Visit 2, Adc Lab Kelsea Harris [facility] 1.2.840.114 350.1.13.10 4.2.7.2.686 [id number] [facility] 2021-08-29 14:30:00 2021-08-29 14:30:00 Outpatient R KIMBERLY [facility] [id number] [facility] 2021-08-29 14:00:00 2021-08-29 14:07:50 [facility] 1.2.840.114 350.1.13.10 4.2.7.2.686 [id number] [facility] 2021-08-29 14:00:00 2021-08-29 14:07:50 [facility] [id number] [facility] 2021-07-02 00:00:00 2021-07-02 00:00:00 Case Management Ashley Johansen [facility] 1.2.840.114 350.1.13.10 4.2.7.2.686 [id number] [facility] 2021-02-18 09:30:00 2021-02-18 09:30:00 Outpatient R HONORIO HERNANDEZ [facility] [id number] [facility] 2021-01-16 00:00:00 2021-01-16 00:00:00 Telephone [address] [facility] 1.2.840.114 350.1.13.10 4.2.7.2.686 [id number] [facility] 2021-01-10 11:34:00 2021-01-10 11:49:00 Territory Sales Manager Visit 2, Adc Lab [facility] 1.2.840.114 350.1.13.10 4.2.7.2.686 [id number] [facility] 2021-01-10 10:50:01 2021-01-10 11:32:38 Office Visit [facility] 1.2.840.114 350.1.13.10 4.2.7.2.686 [id number] [facility] 2021-01-10 10:30:00 2021-01-10 10:30:00 Outpatient R KIMBERLY [facility] [id number] [facility] 2021-01-10 00:00:00 2021-01-10 00:00:00 Orders Only Doctor Unassigned, [facility] 1.2.840.114 350.1.13.10 4.2.7.2.686 [id number] [facility] 2020-09-24 10:00:00 2020-09-24 10:00:00 Outpatient R [facility] [id number] [facility] 2020-08-16 09:30:00 2020-08-16 09:30:00 Outpatient HONORIO JAMA [facility] [id number] [facility] 2020-08-14 00:00:00 2020-08-14 00:00:00 Patient Secure Msg Doctor Unassigned, [facility] 1.2.840.114 350.1.13.10 4.2.7.2.686 [id number] [facility] 2020-07-23 10:30:00 2020-07-23 10:30:00 Outpatient HONORIO JAMA [facility] [id number] [facility] 2020-07-17 10:30:00 2020-07-17 10:30:00 Outpatient HONORIO JAMA [facility] [id number] [facility] 2020-06-25 15:15:00 2020-06-25 15:15:00 Outpatient HONORIO JAMA [facility] [id number] [facility] 2020-05-25 00:00:00 2020-05-25 00:00:00 Patient Secure Msg Honorio Hernandez [facility] 1..840.114 350.1.13.10 4.2.7.2.686 [id number] [facility] 2020-05-14 10:15:00 2020-05-14 10:15:00 Outpatient HONORIO JAMA [facility] [id number] [facility] 2020-05-10 15:00:00 2020-05-10 15:00:00 [facility] [id number] [facility] 2020-04-24 10:30:00 2020-04-24 10:30:00 Outpatient Carole HARRIS [facility] [id number] [facility] 2020-03-21 09:30:00 2020-03-21 09:30:00 Outpatient HONORIO JAMA [facility] [id number] [facility] 2020-03-20 16:15:00 2020-03-20 16:15:00 [facility] [id number] [facility] 2020-03-16 00:00:00 2020-03-16 00:00:00 Patient Secure Msg Doctor Unassigned, [facility] ..840.114 350.1.13.10 4.2.7.2.686 [id number] [facility] 2020-03-13 16:15:00 2020-03-13 16:15:00 [facility] [id number] [facility] 2020-03-06 10:30:00 2020-03-06 10:30:00 Outpatient R KELSEA HARRIS [facility] [id number] [facility] 2020-02-20 16:15:00 2020-02-20 16:15:00 Outpatient HONORIO JAMA [facility] [id number] [facility] 2020-02-06 16:15:00 2020-02-06 16:15:00 Outpatient R KELSEA HARRIS [facility] [id number] [facility] 2020-02-03 14:30:00 2020-02-03 14:30:00 Outpatient R [facility] [id number] [facility] 2020-02-01 10:00:00 2020-02-01 10:00:00 Outpatient R [facility] [id number] [facility] 2020-01-27 10:00:00 2020-01-27 10:00:00 Outpatient R [facility] [id number] [facility] 2020-01-23 10:15:00 2020-01-23 10:15:00 Outpatient R HONORIO HERNANDEZ [facility] [id number] [facility] 2020-01-20 00:00:00 2020-01-20 00:00:00 Patient Secure Honorio Hunter [facility] 1.2.840.114 350.1.13.10 4.2.7.2.686 [id number] [facility] 2020-01-06 11:00:00 2020-01-06 11:00:00 Outpatient KELSEA HERRERA [facility] [id number] [facility] 2020-01-06 00:00:00 2020-01-06 00:00:00 Patient Secure Honorio Hunter [facility] 1.2.840.114 350.1.13.10 4.2.7.2.686 [id number] [facility] 2019-12-05 14:00:00 2019-12-05 14:00:00 Outpatient R HONORIO HERNANDEZ [facility] [id number] [facility] Results Test Description Test Time Test Comments Results Result Co mments [facility]CIFIC [id number] 19:53:00* Test Item Value Reference Range Interpretation [...] internal controls Lab Interpretation (test code = 47692-7) Abnormal [facility] Notes Date/Time Note Provider Source 2023-09-24 15:57:44 Called patient, notified patient positive for yeast. Educated patient on medication, good perineal hygiene, and prevention measures. Pt verbalized understanding. KRISTOPHER Martinez RN 09/24/2023 3:58 PM Kristopher Martinez RN [facility] 2023-09-24 08:53:12 Called pt, no answer. No vm. Kristopher Martinez RN 09/24/23 8:53 AM [facility] 2023-09-24 07:31:05 Please call pt to inform her of positive for yeast. Rx for fluconazole 150mg x1 sent to pharmacy. Thanks T [facility]
[2023-12-16] MEDS ORDERED: CEPHALEXIN 250 MG CAP ONE (01:05)
[2023-12-16] MEDS ORDERED: KETOROLAC 30 MG/ML INJ ONE (01:05)
[2023-12-16] MEDS ORDERED: ONDANSETRON 4 MG (ODT) TAB ONE (01:05)
[2023-12-16] MEDS ORDERED: HYDROCODONE/APAP 5/325 MG TAB ONE (01:05)
[2023-12-16 01:11] LABS: Specific Gravity > 1.030 (1.005-1.030); Sqamous Epithelial <5 /HPF (None Seen); Urine Bacteria <20 /HPF (<20); Urine Bilirubin NEGATIVE (Negative); Urine Blood 3+ (OVER) (Negative); Urine Clarity Extremely Turbid (Clear); Urine Color Dark-Yellow (Yellow); Urine Culture Reflex Order REFLEXED; Urine Glucose TRACE (Negative); Urine Ketones TRACE (Negative); Urine Micro Reflex YN NO BILL MICROSCOPIC; Urine Nitrite NEGATIVE (Negative); Urine Protein 4+ (Over) (Negative); Urine RBC >50 /HPF (None Seen); Urine Urobilinogen Normal (Normal); Urine WBC >50 /HPF (<5); Urine WBC Clump Few /HPF (None Seen)
[2023-12-16 01:12] LABS: Specific Gravity > 1.030 (1.005-1.030)
[2023-12-16] MEDS ORDERED: CEFTRIAXONE 1000 MG/VIAL ONE (01:30)
[2023-12-16 01:46] LABS: Absolute Basophils 0.2 K/uL (0-0.5); Absolute Lymphocytes (CBC) 1.1 K/uL (0.7-4.9); Absolute Monocytes 0.7 K/uL (0.1-1.3); Basophils % 0.9 % (0-1.3); Eosinophils % 0.2 % (0-4.4); Hematocrit 36.5 % (36.0-45.0); Hemoglobin 12.4 g/dL (12.0-15.0); Lymphocytes % 6.6 % (15.3-44.8); MCH 28.5 pg (27.0-35.0); MCHC 33.8 g/dL (32.0-36.0); MCV 84.1 fL (80-100); MPV 8.5 fL (7.6-11.3); Monocytes % 4.3 % (3.3-12.3); Platelets 390 thou/uL (152-406); RBC Red Blood Cell Count 4.35 M/uL (3.86-4.86); Red Cell Distribution Width 13.1 % (12.1-15.2)
[2023-12-16 02:01] LABS: Albumin 3.9 g/dL (3.4-5.0); Albumin/Globulin Ratio 1.1 (1.1-1.8); Anion Gap 12.6 mEq/L (5.0-15.0); Bilirubin Total 0.8 mg/dL (0.2-1.0); Globulin 3.7 g/dL (2.3-3.5); Potassium 3.6 mEq/L (3.5-5.1); Protein, Total 7.6 g/dL (6.4-8.2)
[2023-12-16 03:04] LABS: Platelet Estimate ADEQ; White Blood Cell Scan OK (OK)
[2023-12-16 03:05] LABS: Blood Morphology Comment NOT SEEN (NOT SEEN)
--- NOTE | 2023-12-16 03:40 | ER ---
Nurse's Notes [facility] Name: Kamala Castillo Age: 33 yrs Sex: Female : 1990 Arrival Date: 12/16/2023 Time: 00:22 Bed 7 Private MD: Diagnosis: Acute cystitis , Acute UTI Presentation: 12/15 00:35 Chief complaint: Patient states: Pt reports severe burning with urination, lower kb3 abdominal pain and nausea that began 2 hrs ago. Denies flank pain. Coronavirus screen: Vaccine status: Patient reports being unvaccinated. Client denies travel out of the [place] in the last 14 days. Ebola Screen: Patient negative for fever greater than or equal to 101.5 degrees Fahrenheit, and additional compatible Ebola Virus Disease symptoms Patient denies exposure to infectious person. Patient denies travel to an Ebola-affected area in the 21 days before illness onset. Initial Sepsis Screen: Does the patient meet any 2 criteria? No. Patient's initial sepsis screen is negative. Does the patient have a suspected source of infection? No. Patient's initial sepsis screen is negative. Risk Assessment: Do you want to hurt yourself or someone else? Patient reports no desire to harm self or others. Onset of symptoms was December 15, 2023 at 22:30. 00:35 Method Of Arrival: Ambulatory kb3 00:35 Acuity: BOO 3 kb3 Triage Assessment: 00:39 General: Appears in no apparent distress. uncomfortable, Behavior is calm, cooperative. kb3 Pain: Complains of pain in suprapubic area Pain does not radiate. Pain currently is 10 out of 10 on a pain scale. Quality of pain is described as burning, crampy, Pain began 2 hours ago. GI: Reports lower abdominal pain, nausea. : Reports burning with urination, cramping, lower quadrant(s) inability to void, pain in suprapubic area urgency, since 2229 urinary frequency, since 2229. 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 Last tetanus immunization: up to date. - Infectious Disease History:: Denies. - Social history:: Smoking status: Patient denies any tobacco usage or history of. Screenin:41 [facility] ED Fall Risk Assessment (Adult) History of falling in the last 3 months, iw including since admission No falls in past 3 months (0 pts) Confusion or Disorientation No (0 pts) Intoxicated or Sedated No (0 pts) Impaired Gait No (0 pts) Mobility Assist Device Used No (0 pt) Altered Elimination No (0 pt) Score/Fall Risk Level 0 - 2 = Low Risk. Abuse screen: Denies threats or abuse. Nutritional screening: No deficits noted. Tuberculosis screening: No symptoms or risk factors identified. Assessment: 00:40 General: Appears uncomfortable, Behavior is cooperative. Pain: Complains of pain in iw suprapubic area, right lower quadrant and left lower quadrant Pain does not radiate. Pain currently is 10 out of 10 on a pain scale. Neuro: Level of Consciousness is awake, alert, obeys commands, Oriented to person, place, time, situation, Moves all extremities. Full function. Cardiovascular: Patient's skin is warm and dry. Respiratory: Respiratory effort is even, unlabored, Respiratory pattern is regular, symmetrical. : Reports burning with urination, since 2 hours ago pain in suprapubic area urgency, urinary frequency. Derm: Skin is intact, is healthy with good turgor. Musculoskeletal: Range of motion: intact in all extremities. 02:36 Reassessment: Patient appears in no apparent distress at this time. Patient and/or al5 family updated on plan of care and expected duration. Pain level reassessed. Patient is alert, oriented x 3, equal unlabored respirations, skin warm/dry/pink. Patient states feeling better. Patient states symptoms have improved. 03:23 Reassessment: Patient appears in no apparent distress at this time. No changes from al5 previously documented assessment. Patient and/or family updated on plan of care and expected duration. Pain level reassessed. Patient is alert, oriented x 3, equal unlabored respirations, skin warm/dry/pink. Vital Signs: 00:35 BP 117 / 98; Pulse 78; Resp 20; Temp 97.6; Pulse Ox 100% ; Weight 68.04 kg; Height 4 kb3 ft. 11 in. ; Pain 10/10; 01:00 BP 125 / 4; Pulse 85; Resp 18; Pulse Ox 97% on R/A; al5 01:30 BP 114 / 78; Pulse 75; Resp 18; Pulse Ox 97% on R/A; al5 02:00 BP 114 / 70; Pulse 68; Resp 16; Pulse Ox 98% on R/A; al5 02:30 BP 103 / 66; Pulse 68; Resp 16; Pulse Ox 97% on R/A; al5 03:00 BP 111 / 68; Pulse 61; Resp 16; Pulse Ox 97% on R/A; al5 00:35 Body Mass Index 30.30 (68.04 kg, 149.86 cm) kb3 00:35 Pain Scale: Adult kb3 ED Course: 00:26 Patient arrived in ED. gm2 00:30 Tino Choi MD is Attending Physician. sp4 00:32 Rosalina Robison, RN is Primary Nurse. iw 00:39 Triage completed. kb3 00:39 Arm band placed on right wrist. Patient placed in an exam room, on a stretcher. kb3 00:41 Patient has correct armband on for positive identification. Provided Education on: iw urine sample. 00:58 Urinalysis W/Microscopic Sent. iw 01:36 Inserted saline lock: 20 gauge in left antecubital area, using aseptic technique. Blood oe collected. Flushed with 10 mL NS. 01:42 CT Abd/Pelvis - Without Contrast In Process Unspecified. EDMS 03:51 No provider procedures requiring assistance completed. IV discontinued, intact, al5 bleeding controlled, No redness/swelling at site. Pressure dressing applied. Administered Medications: 01:16 Drug: Ondansetron PO 4 mg PO once Route: PO; al5 01:38 Follow up: Response: No adverse reaction; Nausea is decreased al5 01:16 Drug: Cephalexin PO 500 mg PO once Route: PO; al5 01:38 Follow up: Response: No adverse reaction al5 01:17 Drug: Ketorolac IM 60 mg IM once Route: IM; Site: right ventrogluteal; al5 01:39 Follow up: Response: No adverse reaction; Pain is decreased al5 01:17 Drug: HYDROcodone-acetaminophen PO 5 mg-325 mg 2 tabs PO once Route: PO; al5 01:38 Follow up: Response: No adverse reaction; Pain is decreased al5 01:39 Drug: Rocephin - Rocephin (cefTRIAXone) IVPB 1 grams IVPB once over 30 mins; (mix in 50 al5 mL NS) Route: IVPB; Infused Over: 30 mins; Site: left antecubital; 02:36 Follow up: Response: No adverse reaction; IV Status: Completed infusion; IV Intake: [id number] 03:51 Drug: metroNIDAZOLE PO 500 mg PO once Route: PO; al5 03:51 Follow up: Response: No adverse reaction; Medication administered at discharge. al5 03:51 Drug: Fluconazole PO 200 mg PO once Route: PO; al5 03:51 Follow up: Response: No adverse reaction; Medication administered at discharge. al5 Medication: 00:42 VIS not applicable for this client. iw Intake: 02:36 IV: 10ml; Total: 10ml. al5 Outcome: 03:39 Discharge ordered by . sp4 03:52 Discharged to home ambulatory, with family, al5 03:52 Condition: good 03:52 Discharge instructions given to patient, Instructed on discharge instructions, follow up and referral plans. medication usage, Demonstrated understanding of instructions, follow-up care, medications, Prescriptions given X 5 03:52 Patient left the ED. al5 Signatures: Dispatcher [employer] EDMS Rosalina Robison, RN Barrie Ga Kelly, RN RN vidal3 Tino Choi MD MD sp4 Isabella Greenwood 2 Shira Gan RN RN al5 Corrections: (The following items were deleted from the chart) 00:39 00:39 Home Meds: promethazine 25 mg Oral tab 1 tab once daily; kb3 kb3
--- NOTE | 2023-12-16 03:40 | EDPHYS ---
Physician Documentation [facility] Name: Kamala Castillo Age: 33 yrs Sex: Female : 1990 Arrival Date: 12/16/2023 Time: 00:22 Bed 7 Private MD: ED Physician Tino Choi HPI: 12/15 00:30 This 33 yrs old Female presents to ER via Unassigned with complaints of Pain sp4 With Urination, Pain. 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 Last tetanus immunization: up to date. - Infectious Disease History:: Denies. - Social history:: Smoking status: Patient denies any tobacco usage or history of. Vital Signs: 00:35 BP 117 / 98; Pulse 78; Resp 20; Temp 97.6; Pulse Ox 100% ; Weight 68.04 kg; Height 4 kb3 ft. 11 in. ; Pain 10/10; 01:00 BP 125 / 4; Pulse 85; Resp 18; Pulse Ox 97% on R/A; al5 01:30 BP 114 / 78; Pulse 75; Resp 18; Pulse Ox 97% on R/A; al5 02:00 BP 114 / 70; Pulse 68; Resp 16; Pulse Ox 98% on R/A; al5 02:30 BP 103 / 66; Pulse 68; Resp 16; Pulse Ox 97% on R/A; al5 03:00 BP 111 / 68; Pulse 61; Resp 16; Pulse Ox 97% on R/A; al5 00:35 Body Mass Index 30.30 (68.04 kg, 149.86 cm) kb3 00:35 Pain Scale: Adult kb3 MDM: 00:31 Patient medically screened. sp4 03:38 ED course: PROCEDURE: CTAbdomen and Pelvis Without Intravenous Contrast CLINICAL sp4 INDICATION: The patient is 33 years old and is Female; Hematuria, evaluation for renal stones. TECHNIQUE: Axial computed tomography images of the abdomen and pelvis without intravenous contrast. Sagittal and coronal reformatted images were created and reviewed. This CT exam was performed using one or more of the following dose reduction techniques: automated exposure control, adjustment of the mA and/or kV according to patient size, and/or use of iterative reconstruction technique. COMPARISON: None. FINDINGS: LUNG BASES: Unremarkable No mass. No consolidation. ABDOMEN: LIVER: Unremarkable GALLBLADDER AND BILE DUCTS: Unremarkable No calcified stones. No ductal dilation. PANCREAS: Unremarkable No ductal dilation. SPLEEN: Unremarkable No splenomegaly. ADRENALS: Unremarkable No mass. KIDNEYS AND URETERS: Suspected 0.3 cm phlebolith demonstrated within the left hemipelvis, with no definite intrarenal or intraureteral stones identified. No associated hydronephrosis or ureteral ectasia. STOMACH AND BOWEL: Unremarkable No obstruction. No mucosal thickening. PELVIS: APPENDIX: No findings to suggest acute appendicitis. BLADDER: Collapsed appearance of the urinary bladder with no intraluminal stones. REPRODUCTIVE: Unremarkable as visualized. ABDOMEN and PELVIS: INTRAPERITONEAL SPACE: Unremarkable No free air. No significant fluid collection. BONES/JOINTS: No acute fracture. No dislocation. SOFT TISSUES: Unremarkable VASCULATURE: Unremarkable No abdominal aortic aneurysm. LYMPH NODES: Unremarkable No enlarged lymph nodes. IMPRESSION: 1. Suspected 0.3 cm phlebolith demonstrated within the left hemipelvis, with no definite intrarenal or intraureteral stones identified. No associated hydronephrosis or ureteral ectasia. 2. Allowing for lack of intravenous contrast, no acute abnormality of the abdomen or pelvis. . 12/15 00:30 Order name: Urinalysis W/Microscopic; Complete Time: 01:13 sp4 12/15 00:30 Order name: Test, Urine; Complete Time: 01:22 sp4 12/15 01:15 Order name: Urine Culture EDMA 12/15 01:25 Order name: CBC with Diff; Complete Time: 03:33 sp4 12/15 01:25 Order name: CMP; Complete Time: 03:33 sp4 12/15 03:06 Order name: CBC Smear Scan; Complete Time: 03:33 EDMA 12/15 01:26 Order name: CT Abd/Pelvis - Without Contrast sp4 12/15 01:25 Order name: Saline Lock; Complete Time: 01:49 sp4 Administered Medications: 01:16 Drug: Ondansetron PO 4 mg PO once Route: PO; al5 01:38 Follow up: Response: No adverse reaction; Nausea is decreased al5 01:16 Drug: Cephalexin PO 500 mg PO once Route: PO; al5 01:38 Follow up: Response: No adverse reaction al5 01:17 Drug: Ketorolac IM 60 mg IM once Route: IM; Site: right ventrogluteal; al5 01:39 Follow up: Response: No adverse reaction; Pain is decreased al5 01:17 Drug: HYDROcodone-acetaminophen PO 5 mg-325 mg 2 tabs PO once Route: PO; al5 01:38 Follow up: Response: No adverse reaction; Pain is decreased al5 01:39 Drug: Rocephin - Rocephin (cefTRIAXone) IVPB 1 grams IVPB once over 30 mins; (mix in 50 al5 mL NS) Route: IVPB; Infused Over: 30 mins; Site: left antecubital; 02:36 Follow up: Response: No adverse reaction; IV Status: Completed infusion; IV Intake: [id number] 03:51 Drug: metroNIDAZOLE PO 500 mg PO once Route: PO; al5 03:51 Follow up: Response: No adverse reaction; Medication administered at discharge. al5 03:51 Drug: Fluconazole PO 200 mg PO once Route: PO; al5 03:51 Follow up: Response: No adverse reaction; Medication administered at discharge. al5 Disposition Summary: 12/16/23 03:39 Discharge Ordered Notes: Location: Home sp4 Problem: new sp4 Symptoms: have improved sp4 Condition: Stable sp4 Diagnosis - Acute cystitis , Acute UTI sp4 Followup: sp4 - With: Private Physician - When: 7 - 10 days - Reason: Recheck today's complaints Discharge Instructions: - Discharge Summary Sheet sp4 - Hemorrhagic Cystitis sp4 Forms: - Patient Portal Instructions sp4 Prescriptions: - Cephalexin 500 mg Oral Capsule - take 1 capsule ORAL route every 8 hours for 10 days; 30 capsule; Refills: 0, sp4 Product Selection Permitted - Flagyl 500 mg Oral Tablet - take 1 tablet ORAL route every 8 hours for 10 days; 30 tablet; Refills: 0, sp4 Product Selection Permitted - Ibuprofen 800 mg Oral Tablet - take 1 tablet ORAL route every 8 hours As needed take with food; 30 tablet; sp4 Refills: 0, Product Selection Permitted - Fluconazole 200 mg Oral tablet - take 1 tablet ORAL route once daily; 10 tablet; Refills: 0, Product Selection sp4 Permitted - Tramadol 50 mg Oral tablet - take 1 tablet ORAL route every 8 hours as needed; 20 tablet; Refills: 0, sp4 Product Selection Permitted - ondansetron 8 mg Oral Tablet,disintegrating - take 1 tablet ORAL route every 8 hours; 30 tablet; Refills: 0, Product sp4 Selection Permitted Signatures: Dispatcher [employer] EDMA Pati Espinoza, RN RN kb3 Tino Choi MD MD sp4 Shira Gan RN RN al5 Corrections: (The following items were deleted from the chart) 00:31 00:31 Urinalysis W/Microscopic+U.LAB.BRZ ordered. EDMA EDMS 00:31 00:31 Test, Urine+UC.LAB.BRZ ordered. [facility] EDMA 00:39 00:39 Home Meds: promethazine 25 mg Oral tab 1 tab once daily; kb3 kb3
[2023-12-16] MEDS ORDERED: metroNIDAZOLE 500 MG TABLET ONE (03:42)
[2023-12-16] MEDS ORDERED: FLUCONAZOLE 100 MG TAB ONE (03:42)
[2023-12-16 04:09] VITALS: TEMP 97.6
[2023-12-16 04:14] VITALS: O2SAT 97
[2023-12-16 04:16] VITALS: BP 111/68
--- NOTE | 2023-12-16 19:31 | RAD REPORT ---
EXAM DESCRIPTION: CT - Abdomen Pelvis Wo Contrast - 12/16/2023 1:40 am CLINICAL HISTORY: The patient is 33 years old and is Female; Hematuria, evaluation for renal stones. TECHNIQUE: Axial computed tomography images of the abdomen and pelvis without intravenous contrast. Sagittal and coronal reformatted images were created and reviewed. This CT exam was performed usi ng one or more of the following dose reduction techniques: automated exposure control, adjustment o f the mA and/or kV according to patient size, and/or use of iterative reconstruction technique. COMPARISON: None. FINDINGS: LUNG BASES: Unremarkable No mass. No consolidation. ABDOMEN: LIVER: Unremarkable GALLBLADDER AND BILE DUCTS: Unremarkable No calcified stones. No ductal dilation. PANCREAS: Unremarkable No ductal dilation. SPLEEN: Unremarkable No splenomegaly. ADRENALS: Unremarkable No mass. KIDNEYS AND URETERS: Suspected 0.3 cm phlebolith demonstrated within the left hemipelvis, with no d efinite intrarenal or intraureteral stones identified. No associated hydronephrosis or ureteral ectas ia. STOMACH AND BOWEL: Unremarkable No obstruction. No mucosal thickening. PELVIS: APPENDIX: No findings to suggest acute appendicitis. BLADDER: Collapsed appearance of the urinary bladder with no intraluminal stones. REPRODUCTIVE: Unremarkable as visualized. ABDOMEN and PELVIS: INTRAPERITONEAL SPACE: Unremarkable No free air. No significant fluid collection. BONES/JOINTS: No acute fracture. No dislocation. SOFT TISSUES: Unremarkable VASCULATURE: Unremarkable No abdominal aortic aneurysm. LYMPH NODES: Unremarkable No enlarged lymph nodes. IMPRESSION: 1. Suspected 0.3 cm phlebolith demonstrated within the left hemipelvis, with no defini te intrarenal or intraureteral stones identified. No associated hydronephrosis or ureteral ectasia. 2. Allowing for lack of intravenous contrast, no acute abnormality of the abdomen or pelvis. Electronically signed by: Mazin Cueto MD 12/16/2023 03:08 AM CDT Due to temporary technical issues with the PACS/Fluency reporting system, reports are being signed by the in house radiologists without review as a courtesy to insure prompt reporting. The interpreting radiologist is fully responsible for the content of the report.
== END 2023-12-16 03:52 | disposition home or self-care (01) ==
LOC: ER 00:22
DX: N30.00 Acute cystitis without hematuria (principal)
CPT/HCPCS: 36415; 74176; 80053; 81001; 81025; 85025; 87086; 87088; J0696; Q0162